=== PATIENT | male | born 1940 | race Caucasian/White ===

== ENCOUNTER 2021-02-16 14:48 | Outpatient (CLI) | payer OTHER, SELFPAY ==
--- NOTE | 2021-02-16 15:00 | USCV_ITS ---
Jimenez Leach Age: 80 Gender: M : 1940 Exam Date: 02/16/2021 15:08 Ordering Phys: Yoana Man MD ([email or web address]) Technologist: Molly Agosto Exam Location: [facility] [place] Indication: DIZZINESS BP: 130 / 84 HR: 89 Rhythm: Sinus Technical Quality: Adequate MEASUREMENTS (Male / Female) Normal Values 2D ECHO LV Diastolic Diameter PLAX 5.6 cm 4.2 - 5.9 / 3.9 - 5.3 cm LV Systolic Diameter PLAX 4.8 cm IVS Diastolic Thickness 1.7 cm 0.6 - 1.0 / 0.6 - 0.9 cm IVS Systolic Thickness 2.1 cm LVPW Diastolic Thickness 1.7 cm 0.6 - 1.0 / 0.6 - 0.9 cm LVPW Systolic Thickness 1.9 cm LVOT Diameter 2.0 cm LV Ejection Fraction 2D Teich 32.6 % LV Ejection Fraction MOD 2C 41.8 % LV Ejection Fraction 2C AL 41.6 % LA Diameter 4.0 cm LA Width 3.5 cm LA Height 4.5 cm RA Width 3.0 cm RA Height 3.7 cm Aorta at Sinotubular Diameter 3.1 cm DOPPLER AV Peak Velocity 73.0 cm/s LVOT Peak Velocity 67.0 cm/s AV Area Cont Eq vti 3.6 cm squared AV Area Cont Eq pk 2.9 cm squared MV Area PHT 4.9 cm squared MV E' Velocity 46.0 cm/s Mitral E to MV E' Ratio 10.7 Mitral E to LV E' Lateral Ratio 10.1 Mitral E to LV E' Septal Ratio 11.4 TR Peak Velocity 190.6 cm/s TR Peak Gradient 14.5 mmHg TR Mean Velocity 162.8 cm/s TR Mean Gradient 11.0 mmHg TR Velocity Time Integral 42.1 cm TV Peak E Velocity 52.0 cm/s FINDINGS Left Ventricle Normal left ventricular cavity size and systolic function. Left ventricular ejection fraction is estimated at 60 %. No diagnostic regional wall motion abnormalities. Rhythm precludes evaluation of diastolic function. Right Ventricle Dilated right ventricle with mildly decreased right ventricular systolic function. RVSP could not be calculated due to incomplete tricuspid regurgitation velocity profile. Right Atrium Normal right atrial size. Left Atrium Mildly increased left atrial size. Mitral Valve Moderate mitral annular calcification. Thickened mitral valve. No mitral valve stenosis. Trace mitral valve regurgitation. Aortic Valve Aortic valve not well visualized. No aortic valve stenosis. No aortic valve regurgitation. Tricuspid Valve Tricuspid valve not well visualized. Trace to mild tricuspid valve regurgitation. Pulmonic Valve Pulmonic valve not well visualized. Pericardium No pericardial effusion. Aorta Aorta not well visualized. CONCLUSIONS 1. This is a technically difficult study. Optison was used per protocol. 2. Normal left ventricular cavity size and systolic function. Left ventricular ejection fraction is estimated at 60 %. No diagnostic regional wall motion abnormalities. 3. No gross regional wall motion abnormality. 4. Dilated right ventricle with mildly decreased right ventricular systolic function. 5. When compared to previous echocardiogram dated 04/24/2018, right ventricular systolic function may have decreased. Yoana Man MD (Electronically Signed) Final Date: 17 February 2021 19:37 S
[2021-02-16] MEDS: perflutren protein-a microsphr 0.22 mg/mL SDV 3 mL IV (16:00)
== END 2021-02-16 14:49 | disposition home or self-care (01) ==
LOC: US 14:50
PROVIDERS: PCP Family Medicine; Visit Provider Internal Medicine Cardiovascular Disease
DX: R42 Dizziness and giddiness (principal); I25.10 Atherosclerotic heart disease of native coronary artery without angina pectoris; I50.9 Heart failure, unspecified
CPT/HCPCS: C8929

== ENCOUNTER 2021-09-15 12:09 | Emergency (ER) | payer OTHER, MEDICARE, SELFPAY ==
[2021-09-15 12:18] VITALS: BP 116/72; PULSE 90; RESP 20; TEMP 36.5; O2SAT 99; BMI 39.3
--- NOTE | 2021-09-15 12:38 | W.ED.BACK ---
HPI - Back Pain/Injury General: Chief Complaint: Back Pain/Injury Stated Complaint: back pain Time Seen by Provider: 09/15/21 12:32 Source: patient Mode of arrival: ambulatory (with walker) Limitations: no limitations History of Present Illness: 80-year-old male with a history of chronic low back pain, diabetes, hypertension, hyperlipidemia and is a [facility], presents to the ER today for low back pain that is worsened over the last week. Patient reports he has a history of chronic low back pain for which she took injection several years ago. Patient reports he saw the DC for this and had the injections done about 2 to 3 years ago. Patient reports he got better and was not having issues until about 2 weeks ago. He is unsure what he did to cause the pain to worsen however he became more sore about 2 weeks ago and then last week patient bent over to put a sock on and since that time has been hardly unable to move without assistance. Patient reports constant pain in the low back. He denies any radiating pain. Denies any loss of bowel or bladder control. Denies any numbness or tingling in the lower extremities. Patient has not take anything other than [id number] meds for his pain. Review of Systems General: Reports: 10 or more systems reviewed and unremarkable except in HPI and below PFSH ED PFSH: Medical History Atrial fibrillation CAD (coronary artery disease) CHF (congestive heart failure) Diabetes Hyperlipidemia Peripheral neuropathy Tobacco chew use Social History Alcohol intake: never Physical Exam Const: COMMON NORMALS: no acute distress, average body habitus, patient oriented x3, no limitations, healthy appearing and alert Neck/C-Spine: COMMON NORMALS: full ROM and no lymphadenopathy Resp: COMMON NORMALS: normal respiratory effort and clear to auscultation bilaterally AUSCULTATION: clear to auscultation bilaterally, no rales, no rhonchi and no wheezes Cardio: COMMON NORMALS: regular rate and regular rhythm RATE: regular rate RHYTHM: regular rhythm Back/Pelvis: LUMBAR SPINE/LOWER BACK: Yes normal to inspection, Yes ROM limited, Yes pain with ROM, Yes paraspinal muscle tenderness Lumbar paraspinal muscle tenderness: bilateral and Yes bend over test abnormal (significant pain illicited) Extremity: COMMON NORMALS: normal to inspection, full ROM and no pedal edema Neuro: COMMON NORMALS: patient oriented x3 SENSORIUM/ORIENTATION: Yes alert Psych: COMMON NORMALS: mental status grossly normal, Normal thought process present, cooperative and normal affect THOUGHT PROCESS: Normal thought process present Skin: COMMON NORMALS: no rashes or lesions noted GENERAL SKIN EXAM: no rashes or lesions noted Course ED course: 80-year-old male presents to the ER today with an acute exacerbation of low back pain. Patient denies any neurological symptoms at this time. Denies any loss of bowel or bladder control. Denies any numbness or tingling. Patient does not know what he did to cause the pain to worsen. Patient was taking injections in the past and those did seem to help however this is worsened over the last 2 weeks. Patient has not take anything at home for the pain. It is unlikely an x-ray which shows anything at this time. Patient likely needs more advanced imaging which he can follow-up with his PCP to do. Vital Signs: Vital signs: Vital Signs Temperature 97.7 F 09/15/21 12:18 Pulse Rate 82 09/15/21 12:39 Respiratory Rate 16 09/15/21 12:39 Blood Pressure 109/73 09/15/21 12:39 Pulse Oximetry 97 09/15/21 12:39 MDM - Back Pain/Injury Medical Decision Making 80-year-old male presents to the ER today with an acute exacerbation of low back pain. Patient denies any neurological symptoms at this time. Denies any loss of bowel or bladder control. Denies any numbness or tingling. Patient does not know what he did to cause the pain to worsen. Patient was taking injections in the past and those did seem to help however this is worsened over the last 2 weeks. Patient has not take anything at home for the pain. It is unlikely an x-ray which shows anything at this time. Patient likely needs more advanced imaging which he can follow-up with his PCP to do. I discussed this with patient who verbalized understanding. He will [facility] the [facility] in 10 to 14 days if no improvement. We will try a Medrol Dosepak, anti-inflammatory, and muscle relaxer. If this is not better in 10 to 14 days follow-up. Return to the ER with any new or worsening symptoms. Patient verbalized understanding and is in agreement with the treatment plan. Critical Care Time Critical Care Time: Critical Care Time: No Discharge Plan Discharge Patient Disposition: Home Clinical Impression: Acute exacerbation of chronic low back pain Condition: Stable Prescriptions: New ketorolac 10 mg tablet 10 mg PO Q8H PRN (Reason: pain) 3 Days Qty: 12 0RF methocarbamol 750 mg tablet 750 mg PO Q8H Qty: 21 0RF Medrol (Sina) 4 mg tablets,dose pack See Rx Instructions .ROUTE .COMPLEX Qty: 21 0RF Rx Instructions: orally per package directions No Action aspirin [Adult Low Dose Aspirin] 81 mg tablet,delayed release (DR/EC) 81 mg PO DAILY 0RF cholecalciferol (vitamin D3) 2,000 unit tablet 2,000 unit PO DAILY 0RF fenofibrate nanocrystallized 48 mg tablet 48 mg PO DAILY 0RF omega-3 fatty acids PO 0RF folic acid 1 mg tablet 1 mg PO DAILY 0RF gabapentin 400 mg capsule 400 mg PO BID 0RF glipizide 5 mg tablet 5 mg PO BID 0RF metformin 1,000 mg tablet 500 mg PO BID 0RF omeprazole 20 mg capsule,delayed release(DR/EC) 20 mg PO DAILY 0RF potassium chloride 20 mEq packet 20 meq PO DAILY 0RF rivaroxaban 20 mg tablet 20 mg PO DAILY 0RF rosuvastatin 10 mg tablet 10 mg PO DAILY 0RF terazosin 10 mg capsule 10 mg PO DAILY 0RF furosemide 20 mg tablet 20 mg PO DAILY 0RF Label Comments: Per pt takes 2 10 mg daily atenolol 25 mg tablet 25 mg PO DAILY Qty: 90 1RF lisinopril 5 mg tablet 5 mg PO DAILY Qty: 90 1RF Discharge Orders: Discharge ED (Routine); Ordered 09/15/21 Ordered By: Roxanne Alvarez Referrals: Rose Milton MD [Primary Care Provider] - Discharge Diet: Usual diet Discharge Activity: Increase activity as tolerated Patient Instructions: Opioid Safety Activity Restrictions/Additional Instructions: Take medications as prescribed. [facility] with [facility] doctor in 10 to 14 days if no improvement. Warm moist heat alternating with ice recommended for the low back. Topical muscle rub may also be used but do not use with heat or ice. Return to the ER with new or worsening symptoms. Coding Level of Care Code ED Land Surveying Party Chief for Trixie Melgar
[2021-09-15 12:39] VITALS: BP 109/73; PULSE 82; RESP 16; O2SAT 97
[2021-09-15 13:11] VITALS: BP 109/73; PULSE 87; RESP 16; O2SAT 98
== END 2021-09-15 13:12 | disposition home or self-care (01) ==
PROVIDERS: Emergency Provider Physician Assistant; PCP Family Medicine
DX: M54.50 Low back pain, unspecified (principal); G89.29 Other chronic pain
CPT/HCPCS: 99281

== ENCOUNTER → 2021-10-20 10:41 | Outpatient (BNVA) | payer OTHER, SELFPAY | PROVIDERS: PCP Family Medicine; Visit Provider Internal Medicine Cardiovascular Disease | DX: I25.10 Atherosclerotic heart disease of native coronary artery without angina pectoris (principal); I11.0 Hypertensive heart disease with heart failure; I50.9 Heart failure, unspecified; E78.5 Hyperlipidemia, unspecified; I48.11 Longstanding persistent atrial fibrillation; E11.42 Type 2 diabetes mellitus with diabetic polyneuropathy; Z87.891 Personal history of nicotine dependence; Z79.84 Long term (current) use of oral hypoglycemic drugs | CPT/HCPCS: 99214 ==

== ENCOUNTER → 2022-03-22 09:05 | Outpatient (BNVA) | payer OTHER, SELFPAY | PROVIDERS: PCP Family Medicine; Referring Provider Family Medicine; Visit Provider Orthopaedic Surgery | DX: M48.062 Spinal stenosis, lumbar region with neurogenic claudication (principal) | CPT/HCPCS: 72110; 99203; 99204 ==

== ENCOUNTER 2022-05-17 10:06 | Outpatient (CLI) | payer OTHER, SELFPAY ==
--- NOTE | 2022-05-17 10:15 | MR_ITS ---
WS: [id number] MRI LUMBAR SPINE NONCONTRAST TECHNIQUE: Sagittal T1, T2 and STIR imaging. Axial T1 and T2 imaging. CLINICAL INFORMATION: low back pain COMPARISON: None. FINDINGS: Mild lumbar curve. Moderate spondylitic changes. Anterior hypertrophic changes lumbar spine. Disc bul ging worse at L4-L5 with severe central canal stenosis. L1-L2: Mild annular bulging. Moderate facet arthropathy. Mild LEFT and no RIGHT foraminal narrowing. Mild central canal stenosis at this level. L2-L3: Mild disc bulging and osteophytic ridging. Moderate central canal stenosis. Moderate facet art hropathy ligamentum flavum hypertrophy. Mild RIGHT and no LEFT foraminal narrowing. L3-L4: Mild disc bulging and osteophytic ridging. Moderate central canal stenosis. Advanced arthropat hy. Mild RIGHT and no significant LEFT foraminal narrowing. L4-L5: Severe central canal stenosis with mild disc bulging in combination with facet arthropathy and ligamentum flavum hypertrophy. Impingement on traversing LEFT greater than RIGHT L5 nerve roots. Mod erate to severe LEFT and mild RIGHT foraminal narrowing. Advanced facet arthropathy. L5-S1: Disc osteophyte complex with endplate ridging. Moderate to advanced facet arthropathy. Severe RIGHT foraminal narrowing. Impingement on the exiting RIGHT L5 nerve root. Mild to moderate LEFT bony foraminal narrowing. Visualized pelvic bony structures: Normal. Paravertebral soft tissues: Normal. MR/MR lumbar spine wo con* [id number] IMPRESSION: 1. Severe central canal stenosis L4-L5 due to disc bulging with facet arthropa thy ligamentum flavum hypertrophy. Impingement on the traversing LEFT greater t sky RIGHT L5 nerve roots. 2. Mild central canal stenosis L1-L2. Moderate central canal stenosis L2-L3 L3 -L4 due to disc bulging in combination with facet arthropathy ligamentum flavum hypertrophy. 3. Moderate LEFT L4-L5 and moderate to severe RIGHT L5-S1 foraminal narrowing. Impingement on the exiting LEFT L4 and RIGHT L5 nerve roots respectively. 4. Mild RIGHT L3-L4 foraminal narrowing with small RIGHT foraminal protrusion.
== END 2022-05-17 10:07 | disposition home or self-care (01) ==
LOC: RAD 10:07
PROVIDERS: PCP Family Medicine; Visit Provider Orthopaedic Surgery
DX: M54.50 Low back pain, unspecified (principal)
CPT/HCPCS: 72148

== ENCOUNTER → 2022-06-14 10:02 | Outpatient (BNVA) | payer OTHER, SELFPAY | PROVIDERS: PCP Family Medicine; Visit Provider Physician Assistant | DX: M48.062 Spinal stenosis, lumbar region with neurogenic claudication (principal); M51.37 Other intervertebral disc degeneration, lumbosacral region; M48.07 Spinal stenosis, lumbosacral region | CPT/HCPCS: 99213 ==

== ENCOUNTER → 2022-07-03 10:47 | Outpatient (BNVA) | payer OTHER, SELFPAY | PROVIDERS: PCP Family Medicine; Visit Provider Internal Medicine Cardiovascular Disease | DX: Z01.810 Encounter for preprocedural cardiovascular examination (principal); I25.10 Atherosclerotic heart disease of native coronary artery without angina pectoris; I48.11 Longstanding persistent atrial fibrillation; E78.5 Hyperlipidemia, unspecified; F17.220 Nicotine dependence, chewing tobacco, uncomplicated; I11.0 Hypertensive heart disease with heart failure; I50.30 Unspecified diastolic (congestive) heart failure | CPT/HCPCS: 93005; 99214; Q3014 ==

== ENCOUNTER 2022-08-06 10:02 | Outpatient (CLI) | payer OTHER, SELFPAY | END 2022-08-06 10:03 | disposition home or self-care (01) | LOC: RT 10:03 | PROVIDERS: PCP Family Medicine; Visit Provider Orthopaedic Surgery | DX: Z01.810 Encounter for preprocedural cardiovascular examination (principal) | CPT/HCPCS: 93005 ==

== ENCOUNTER 2022-08-09 09:37 | Outpatient (CLI) | payer OTHER, SELFPAY ==
--- NOTE | 2022-08-09 | ECG_ITS ---
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 Interpretive Statements NAME OF STUDY: LEXISCAN SESTAMIBI STRESS TEST INDICATION: Chest Pain PROCEDURE: At the baseline, the EKG revealed atrial fibrillation with a ventricular rate of [address]-T changes pm. The baseline heart was 90 bpm with a blood pressue of 119/78 mm of Hg Lexiscan was infused over a period of 20 seconds. A total of 0.4 milligrams of Lexiscan was infused. The stress phase was continued for a total of 5 minutes. Heart rate at the end of the stress phase was 104 bpm with a blood pressure 93/72 mm of Hg. The EKG at the peak infusion revealed no significant changes occasional PVCs are noted during the stress. Sestamibi was injected 20 seconds after the Lexiscan infusion. Heart rate at the end of the recovery phase was 97 bpm with a blood pressure of 112/80 mm of Hg. CONCLUSION: 1. No significant EKG changes with the LexiScan infusion 2. No LexiScan induced chest pain or cardiac arrhythmia 3. Normal blood pressure and heart rate response 4. Sestamibi/sestamibi perfusion scan pending; see separate report. Electronically Signed On 08-11-2022 16:43:45 RESIDENT CARE AIDE by Delbert uQintero M.D. [id number]
[2022-08-09 10:27] VITALS: BMI 38.0
--- NOTE | 2022-08-09 11:18 | NMCV_ITS ---
NM jm perf SPECT r/s* [id number] RosalindaJmienez barroso Age: 81 Gender: M : 1940 Exam Date: 08/09/2022 11:15 Ordering Phys: Yoana Man MD ([email or web address]) Technologist: TYESHA George Exam Location: [facility] Indications: AFIB STRESS TEST Please see separate stress test report in [facility] for full findings IMAGE PROTOCOL Rest/Stress 1 Lexiscan Day Radiopharmaceutical Dose (mCi) Administration Site Administered by Rest: Tc-99m 10.7 IV TYESHA Meraz Sestamibi Stress:Tc-99m 33.0 IV TYESHA Meraz Sestamibi Rest: 09-Aug-2022 60 Discovery 630 Stress: 09-Aug-2022 30 Discovery 630 0.4mg Lexiscan. Supine position only as patient was unable to lay prone. SPECT RESULTS Technical Quality: Excellent Raw Data Analysis: Normal Image Corrections: No attenuation or motion correction applied Summed Stress Score: 0 Summed Rest Score: 0 Summed Difference Score: 0 PERFUSION FINDINGS Uniform myocardial tracer uptake with no significant perfusion abnormalities FUNCTIONAL RESULTS (calculated via Gated SPECT) Stress Image LV EF (%): 59 Stress EDV (mL):85 TID: 1.06 Stress ESV (mL):35 FUNCTIONAL FINDINGS: Segmental wall motion analysis revealing no gross wall motion abnormalities IMPRESSIONS 1. Myocardial perfusion imaging revealing fairly uniform myocardial tracer uptake with no significant perfusion abnormalities. 2. Normal LV ejection fraction of 59% 3. LV wall motion analysis revealing no gross wall motion abnormalities. 4. Normal LV volume Low probability for coronary ischemia, based on the above findings Dr Delbert Quintero MD FACC (Electronically Signed) Final Date: 09 August 2022 13:07 S
[2022-08-09] MEDS: regadenoson 0.4 Mg/5 ml Syringe IVP (11:46)
[2022-08-09 13:58] VITALS: BP 126/75; PULSE 62
== END 2022-08-09 09:38 | disposition home or self-care (01) ==
LOC: CDL 09:39
PROVIDERS: PCP Family Medicine; Visit Provider Internal Medicine Cardiovascular Disease
DX: R07.9 Chest pain, unspecified (principal)
CPT/HCPCS: 36415; 78452; 93017; 96374; A9500; J2785

== ENCOUNTER 2022-08-13 12:10 | Inpatient (IN) | payer OTHER, SELFPAY ==
[2022-08-06 09:14] VITALS: BMI 38.0
--- NOTE | 2022-08-06 09:21 | ECG_ITS ---
[facility] Test Date: 2022-08-06 Pat Name: Jimenez Leach Department: Room: Gender: Male Incident Response Analyst: : 1940 Requested By: Drew Michaud Order Number: [id number] Antoino MD: Chidi Murillo M.D. Measurements Intervals [place] Rate: 80 P: 0 [place]: 0 QRS: 48 QRSD: 90 T: 30 QT: 374 QTc: 432 Interpretive Statements ATRIAL FIBRILLATION WITH ABERRANT CONDUCTION OR VENTRICULAR PREMATURE COMPLEXES Compared to ECG 10/03/2018 11:41:18 Ventricular premature complex(es) now present Aberrant conduction of supraventricular beat(s) now present Sinus bradycardia no longer present Myocardial infarct finding no longer present Electronically Signed On 08-06-2022 17:32:50 MARKETING TEAM LEAD by Chidi Murillo M.D. [id number]
[2022-08-06 09:45] LABS: Hematocrit 44.6 % (42.0-52.0); Hemoglobin 14.4 g/dL (11.7-16.6); Mean Corpuscular HGB Conc 32.3 g/dL (30.0-36.0); Mean Corpuscular Hemoglobin 30.4 pg (28.0-34.0); Mean Corpuscular Volume 94.3 fl (80-94); Mean Platelet Volume 10.2 fL (7.4-10.4); Platelet Count 155 10^3/cmm (130-400); Red Blood Count 4.73 10^6/uL (4.1-5.3); Red Cell Distribution Width 16.5 % (12.1-15.1)
[2022-08-06 10:01] LABS: Absolute Eosinophils 0.1 10^3/cmm (0.0-0.7); Absolute Segmented Neutrophil 3.4 10/cmm (1.6-7.1); Anion Gap 15.4 (5-19); Blood Urea Nitrogen 17 mg/dL (8-23); Calcium 9.3 mg/dL (8.5-10.5); Carbon Dioxide 26 mmol/L (22-29); Chloride 103 mmol/L (98-107); Eosinophils 3 %; Glucose 122 mg/dL (65-115); Lymphocytes 34 %; Monocytes Absolute 0.4 10^3/cmm (0.1-0.6); Osmolality Calculated 293 mOsm/kg (285-295); Potassium 4.4 mmol/L (3.5-5.1); Segmented Neutrophils 57 %; Sodium 140 mmol/L (136-145); Total Cells Counted 100 (0-100)
[2022-08-06 10:03] LABS: Absolute Neutrophil 3.4 10^3/cmm (1.4-6.5); Platelet Estimate Normal (Normal)
--- NOTE | 2022-08-06 16:15 | ANES.PREANE2 ---
Pre-Anesthetic Assessment Height/Weight: Height 1.83 m Weight 127.006 kg Operation Date: 08/13/22 07:00 Proposed Procedures p Posterior Lumbar Interbody Fusion [id number] with decomp of L4/5 L5S1 and possible PLIF L5/S1 T10 60693 T11 68308 T12 14522 L1 83614,[id number] 40658, 43857,47867,67414,59723,06203,86680,48080,M48.062,M51.37(Not Applicable) - Jermaien Wing DO s Lumbar Spine Decompression 10257,09754(Not Applicable) - Jermaine Wing DO Familial anesthetic complications: none Was Beta Aretha taken within 24 hours: Yes Was Clonidine taken within 24 hours: N/A Social Tobacco (chews) and No alcohol Exam alert, oriented x 3 and clear to auscultation bilaterally Airway Submandibular: within normal limits Cervical ROM: within normal limits Mallampati: Class II Dentition: false Pulmonary Chronic Obstructive Pulmonary Disease CV/HEM Atrial Fibrillation (Xarelto), Coronary Artery Disease (stent) and Hypertension Stress test scheduled for 08/09/22 (f/u) Metabolic Diabetes Mellitus, Hyperlipidemia and Morbid Obesity [facility] Lower Back Pain and Osteoarthritis/DJD Neuropsych Neuropathy Anesthetic Plan ASA status: 3 Anesthesia: General Other: Discussed a.line and transfusion Medications/Allergies Home Medications Medication Instructions Recorded Confirmed Last Taken Type aspirin 81 mg tablet,delayed 81 mg PO DAILY 07/30/19 08/06/22 08/06/22 History release (Adult Low Dose Aspirin) fenofibrate nanocrystallized 48 mg 48 mg PO DAILY 07/30/19 08/06/22 08/06/22 History tablet folic acid 1 mg tablet 1 mg PO DAILY 07/30/19 08/06/22 08/06/22 History gabapentin 400 mg capsule 400 mg PO BID 07/30/19 08/06/22 08/06/22 History metformin 1,000 mg tablet 500 mg PO BID 07/30/19 08/06/22 08/06/22 History omeprazole 20 mg capsule,delayed 20 mg PO DAILY 07/30/19 08/06/22 08/06/22 History release rivaroxaban 20 mg tablet 20 mg PO DAILY 07/30/19 08/06/22 08/06/22 History rosuvastatin 10 mg tablet 10 mg PO DAILY 07/30/19 08/06/22 08/06/22 History terazosin 10 mg capsule 10 mg PO DAILY 07/30/19 08/06/22 08/06/22 History atenolol 25 mg tablet 25 mg PO DAILY #90 tabs 04/24/21 08/06/22 08/06/22 Rx lisinopril 5 mg tablet 5 mg PO DAILY #90 tabs 04/24/21 08/06/22 08/06/22 Rx glipizide 5 mg tablet 5 mg PO DAILY 10/20/21 08/06/22 08/06/22 History furosemide 20 mg tablet 60 mg PO DIRECTED 07/03/22 08/06/22 08/06/22 History omega-3 fatty acids [Fish Oil 1,000 mg PO DAILY 07/03/22 08/06/22 08/06/22 History Concentrate] potassium chloride 20 mEq 30 meq PO DAILY 07/03/22 08/06/22 08/06/22 History tablet,extended release prenat.vits,gene,cff-ongg-dhodc 1 tab PO DAILY 07/03/22 08/06/22 08/06/22 History alogliptin 25 mg tablet 25 mg PO DAILY 08/06/22 08/06/22 08/06/22 History Allergies Allergy/AdvReac Type Severity Reaction Status Date / Time No Known Allergies Allergy Verified 08/06/22 09:04 [facility] Anesthesia Medical History Atrial fibrillation CAD (coronary artery disease) CHF (congestive heart failure) Diabetes Hyperlipidemia Peripheral neuropathy Tobacco chew use Social History Smoking and tobacco status: former smoker Alcohol intake: never Data Anesthesia 08/06/22 09:20 08/06/22 09:20 Short CBC 08/06/22 Range/Units 09:20 WBC 6.0 (4.0-10.0) 10^3/uL Hgb 14.4 (11.7-16.6) g/dL Hct 44.6 (42.0-52.0) % MCV 94.3 H (80-94) fl Plt Count 155 (130-400) 10^3/cmm BMP 08/06/22 09:20 Sodium 140 Potassium 4.4 Chloride 103 Carbon Dioxide 26 BUN 17 Creatinine 1.0 Glucose 122 H Calcium 9.3 Cardiac Studies: Echocardiogram 02/16/21 Holter Monitor 12/23/20
[2022-08-13] VITALS (75 sets, daily range): BP systolic 73–141; BP diastolic 37–87; PULSE 33–96; RESP 0–31; TEMP 36.1–37.4; O2SAT 91–99
--- NOTE | 2022-08-13 06:14 | PM.HP ---
Providers/Chief Complaint Primary Care Provider: Rose Milton MD Chief Complaint: [id number]/M48.062/M51. History of Present Illness Jimenez Leach is a 81 year old male ?He ambulates with a roller walker.? States he has had progressive numbness in his feet he can only walk a short distance for sit down because of the symptoms progressing.? He reports 80% back pain 20% leg pain.? Activities such as leaning forward on a cart definitely help relieve some of his leg symptoms but it in the last 6 months he cannot feel his feet.? He denies any loss of bowel or bladder control.? He has had an conservative treatment in the past with injections in the past without much relief.? He is at a point where he is wanting something more definitive done to help him return to more active lifestyle. Review of Systems Const: Denies: fever(s) or chills Eyes: Denies: change in vision Card: Reports: dyspnea on exertion; Denies: chest pain, palpitations, swelling of feet/ankles, lightheadedness or orthopnea Resp: Denies: dyspnea, productive cough or non-productive cough GI: Denies: abdominal pain, nausea or vomiting Musc: Reports: neck pain, back pain and joint pain Neuro: Denies: headache(s) or dizziness Psych: Reports: anxiety; Denies: depression Dong/Lymph: Reports: easy bruising; Denies: easy bleeding Medications/Allergies Home Medications Medication Instructions Recorded Confirmed Last Taken Type aspirin 81 mg tablet,delayed 81 mg PO DAILY 07/30/19 08/06/22 08/12/22 History release (Adult Low Dose Aspirin) fenofibrate nanocrystallized 48 mg 48 mg PO DAILY 07/30/19 08/06/22 08/12/22 History tablet folic acid 1 mg tablet 1 mg PO DAILY 07/30/19 08/06/22 08/12/22 History gabapentin 400 mg capsule 400 mg PO BID 07/30/19 08/06/22 08/12/22 History metformin 1,000 mg tablet 500 mg PO BID 07/30/19 08/06/22 08/12/22 History omeprazole 20 mg capsule,delayed 20 mg PO DAILY 07/30/19 08/06/22 08/12/22 History release rivaroxaban 20 mg tablet 20 mg PO DAILY 07/30/19 08/06/22 08/08/22 History rosuvastatin 10 mg tablet 10 mg PO DAILY 07/30/19 08/06/22 08/12/22 History terazosin 10 mg capsule 10 mg PO DAILY 07/30/19 08/06/22 08/12/22 History atenolol 25 mg tablet 25 mg PO DAILY #90 tabs 04/24/21 08/06/22 08/13/22 05:00 Rx lisinopril 5 mg tablet 5 mg PO DAILY #90 tabs 04/24/21 08/06/22 08/12/22 Rx glipizide 5 mg tablet 5 mg PO DAILY 10/20/21 08/06/22 08/12/22 History furosemide 20 mg tablet 60 mg PO DIRECTED 07/03/22 08/06/22 08/12/22 History omega-3 fatty acids [Fish Oil 1,000 mg PO DAILY 07/03/22 08/06/22 08/12/22 History Concentrate] potassium chloride 20 mEq 30 meq PO DAILY 07/03/22 08/06/22 08/12/22 History tablet,extended release prenat.vits,gene,[id number]-[id number]-wmntn 1 tab PO DAILY 07/03/22 08/06/22 08/12/22 History alogliptin 25 mg tablet 25 mg PO DAILY 08/06/22 08/06/22 08/06/22 History Allergies Allergy/AdvReac Type Severity Reaction Status Date / Time No Known Allergies Allergy Verified 08/09/22 10:48 PFSH Acute PFSH: Medical History Atrial fibrillation CAD (coronary artery disease) CHF (congestive heart failure) Diabetes Hyperlipidemia Peripheral neuropathy Tobacco chew use Social History Smoking and tobacco status: former smoker Alcohol intake: never Physical Exam Narrative: Narrative:?? EXAM NARRATIVE: He is alert orient x 3 has good general appearance normal mood and affect a mbulating with a r bethany walker with an antalgic gait.? He is tender with palpation through out the lumbar spi ne over the parasp inous musculature of the lumbar spin e.? He has decreas ed sensation light touch diffusely d own both lower ext remities.? He is v fatoumata stiff with hip flexion.? He can dorsiflex and plan tarflex both lower extremities with some weakness bila terally.? Skin is clear warm femoral good cap refill c aj are supple d orsalis pedis post erior pulses are w eak but palpable.? No medial thigh t enderness. HENMT:?? COMMON NORMALS: no rmocephalic? HEAD & SCALP: normoceph alic Resp:?? COMMON NORMALS: no rmal respiratory e ffort Cardio:?? COMMON NORMALS: re gular rate and reg ular rhythm? RATE: regular rate? RHY THM: regular rhyth m GI:?? COMMON NORMALS: So ft to palpation an d non-tender? PALP ATION: Yes Soft to palpation :?? COMMON NORMALS: Ye s no CVA tendernes s? BLADDER/KIDNEY EXAM: Yes no CVA t enderness Back/Pelvis:?? COMMON NORMALS: no CVA tenderness Psych:?? COMMON NORMALS: me ntal status grossl y normal and coope rative Data 08/06/22 09:20 08/06/22 09:20 A&P Assessment and plan (1) Lumbar stenosis with neurogenic claudication: T10 to the pelvis fusion with decompression L4-5 L5-S1 with possible PLIF L5-S1 with the use of? K2 M Nicholson TL cage with Bioventus osteoamp fibers and osteo amp sponges for the cage and posterior lateral fusion.? Attestations Medical Necessity Statement*: failed conservative tx Coding Level of Care Code Acute Code for [facility] Fwd Diagnoses Lumbar stenosis with neurogenic claudication M48.062
[2022-08-13 06:17] LABS: Glucose Point of Care 135 mg/dL (70-110)
[2022-08-13] MEDS: sodium chloride 0.9% 1,000 ML 30 ML IV (06:25)
--- NOTE | 2022-08-13 06:40 | P.ANESUD_ITS ---
Pre-Anesthetic Update Pre-Anesthetic Assessment: Date of Surgery/Procedure: 08/13/22 Preop Bhavna gnosis: DDD l spine, lumbar stenosis with neurogenic claudication Proposed Procedure: Operation Date: 08/13/22 07:00 Proposed Procedures p Posterior Lumbar Interbody Fusion [id number] with decomp of L4/5 L5S1 and possible PLIF L5/S1 T10 68895 T11 95437 T12 38593 L1 [id number], [id number],M48.062,M51.37(Not Applicable) - Jermaine Wing, DO s Lumbar Spine Decompression [id number](Not Applicable) - Jermaine Wing, DO Any changes to Pre-Anesthetic Assessment?: No Last Intake: Intake Last Liquid Date 08/12/22 Last Liquid Time 22:00 Last Solid Date 08/12/22 Last Solid Time 22:00 Vitals: Temperature 97.0 F L 08/13/22 06:17 Temperature Source Tympanic 08/13/22 06:17 Pulse Rate 79 08/13/22 06:17 Respiratory Rate 20 H 08/13/22 06:17 Blood Pressure 141/70 08/13/22 06:17 Blood Pressure Fannie n 93 08/13/22 06:17 Pulse Oximetry 94 08/13/22 06:17 Oxygen Delivery Me thod 08/13/22 06:17 Exam: Pre-Anes Outpt Exam: alert, oriented x 3, clear to auscultation bilaterally and regular rate & rhythm Cardiac Studies: Echocardiogram 02/16/21 Sestamibi Stress Test (Cardiology) 08/09 Holter Monitor 12/23/20
[2022-08-13] MEDS: ceFAZolin 2,000 MG in sodium chloride 0.9% (plus) 50 ML 100 MG IV ×3 (07:03→22:36)
[2022-08-13] MEDS: vancomycin 1,000 MG SDV 1000 MG XX (07:57)
[2022-08-13] MEDS: lidocaine-epi 1% 20 mL INJ INJECTION (07:58)
[2022-08-13] MEDS: heparin, porcine 1,000 unit/mL INJ 10 mL 10000 UNIT IRRIGATION (07:58)
--- NOTE | 2022-08-13 08:04 | SUR.OPER ---
daughter notified of surgical start.
--- NOTE | 2022-08-13 11:52 | PM.OP ---
Operative Report Date of procedure: August 13, 2022 Pre-op diagnosis: Preop Diagnosis DDD l spine, lumbar stenosis with neurogenic claudication Post-op diagnosis: same Procedure done: 1. T10 to pelvis posterior fusion 2. T10 to S1 instrumentation 3. Lumbopelvic instrumentation 4. Right SI open fusion 5. Left open SI joint fusion 6. L3/4 laminecomy with partial facetectomy 7. L4/5 laminectomy with partial facetectomy 8. Use of computer navigation / stereotactic for spine 9. Bone marrow aspirate right iliac crest 10. use of autograft 11. use of allograft Surgeon: Jemraine Wing Manometer Technician: Rivera Xie Manometer Technician: The sales support assistant, Rivera Xie, PAC was needed for his expertise under the microscope. He was important and necessary throughout the procedure to complete in a safe and timely manner. He assisted with patient positioning prepping and draping tissue retraction suctioning of the operative field protection of the dural sac and tissue closure Estimated blood loss (mL): 600 Procedure: 1. T10 to pelvis posterior fusion 2. T10 to S1 instrumentation 3. Lumbopelvic instrumentation 4. Right SI open fusion 5. Left open SI joint fusion 6. L3/4 laminecomy with partial facetectomy 7. L4/5 laminectomy with partial facetectomy 8. Use of computer navigation / stereotactic for spine 9. Bone marrow aspirate right iliac crest 10. use of autograft 11. use of allograft Patient is brought to the operative suite.? After undergoing anesthesia, the patient had neuro monitoring attached.? Patient was then placed in the prone position on the Andrey table.? All areas of impingement were well-padded.? Patient was then prepped and draped in the normal sterile fashion.? Skin incision was then made over the T10 to sacrum.? Subperiosteal dissection was made out to the transverse processes of T10 thru L5 and the sacral ala.? The [employer] bone marrow aspirate kit was used to aspirate bone marrow aspirate from the right iliac crest.? This was done by using the sharp probe to open up the bone.? Aspiration was performed and then the blunt probe was then used to dissect down to through the bone tunnel.? An aspirating well drawn back a millimeter approximately 20 cc of bone marrow aspirate was used.? Admixed with the allograft and autograft bone that will be used. Next attention was brought to obtaining the placement of the computer navigation fiducial.? This was done by placing tube pins into the iliac crest.? These pins were later removed at the end of the case.? The fiducial was attached to these 2 pins.? The C-arm was brought in and the C-arm was spun around the patient.? The information from the C-arm was then loaded in the computer in order to facilitate using computer navigation for placement of pedicle screws and iliac screws. Next attention was brought to placing the pedicle screws. The technique for placing the pedicle screws was to use a drill followed by the gearshift probe linked to the computer navigation.? Followed by the ball probe to feel the superior inferior medial lateral saenz of the pedicles.? Then placement of the screws using computer navigation.? Was done at each pedicle.? Screws were placed atT10 bilaterally, T11 bilaterally, T12 bilaterally, L1 bilaterally and L2 bilaterally and L3 bilaterally and L4 bilaterally and L5 bilaterally and S1 bilaterally. Next attention was brought to placing the iliac screws.? This was done again using the gearshift probe linked to get computer navigation.? The iliac screw was started at the sacrum through the ala through the SI joint and into the pelvis.? Next the pedicle feeler was used followed by the tap that was linked to computer navigation and then an 80 mm screw 9.5 mm diameter was placed this was done bilaterally. Next attention was brought to performing the open sacroiliac fusion.? This was done by identifying the SI joint bilateraly.? A pin was placed into the SI joint.? And then a tissue protector was placed and then the SI joint was drilled directly.? Next the ostial amp bone graft was packed into the SI joint.? This was done on both the right and the left side. Was brought to doing the decompression at L4-5. The high-speed bur was used to take down the lamina as well as the medial aspect of the facet joints. A curved curette and Kerrison rongeur was used to take down the remaining lamina as well as the ligamentum flavum from L4 to L5. The medial aspect of the facet joints were taken down with curved curettes Kerrison rongeurs and high-speed drill. Once the laminectomy and partial facetectomies were clipped completed bilaterally the L5 nerve was traced around the L5 pedicle felt to be adequately decompressed as was the L4 nerve out the L4-5 foramen. Next attention was brought to the L3-4 space. The lamina of L3 was taken down with a high-speed bur along with curved curettes and Kerrison rongeurs. Medial aspect of facet joints were taken down with a curved curettes and Kerrison rongeurs. The ligamentum flavum was taken down from L3-L4 the dura was found to be in good repair from L3 down to L5. The L3 nerve roots were traced out the L3-4 foramens bilaterally. And the L for nerves were traced around the L4 pedicles bilaterally felt to be adequate decompressed. Extension was brought to placing the rods. The screw caps were aligned and the lizette was placed from T10 down to S1 connecting also into the iliac crest completing the lumbopelvic fixation. The caps were then tightened down on all of the screws from T10 down to the iliac crest. There is S1. This was done bilaterally. We was then irrigated. And then the bone was decorticated the transverse processes from L1 to the sacral ala. And then the lamina and transverse processes of the [id number] were decorticated. The patient's own bone and the allograft osteo amp bone graft was packed in these gutters and this was done for fusion purposes. He was then closed in a layered fashion with 0 Vicryl 2-0 Vicryl Monocryl suture. Deep drain was placed along vancomycin powder sterile dressings were applied patient was transferred to the PACU in stable condition.
[2022-08-13 12:21] LABS: Glucose Point of Care 136 mg/dL (70-110)
--- NOTE | 2022-08-13 13:04 | ANE.PACU2 ---
Inpatient post-anesthesia follow up: Airway intact: Yes Vital signs: Temperature 97.3 F Pulse Rate 89 Respiratory Rate 13 Blood Pressure 103/65 Pulse Oximetry 97 Oxygen Delivery Me thod Simple Mask Oxygen Flow Rate 3 Fraction of Inspir ed Oxygen Hydration adequate: Yes Nausea and vomiting: No Pain level: 3 Mental status: Baseline
[2022-08-13] MEDS: sodium chloride 0.9% 1,000 ML 100 ML IV (13:38)
[2022-08-13] MEDS: lactated ringers 1,000 ML 90 ML IV (15:11)
[2022-08-13 16:36] LABS: Glucose Point of Care 174 mg/dL (70-110)
[2022-08-13] MEDS: sodium chloride 0.9% 500 ML IV (16:50)
[2022-08-13] MEDS: docusate sodium 100 mg Capsule PO (17:43)
[2022-08-13] MEDS: gabapentin 400 mg Capsule PO (17:43)
[2022-08-13] MEDS: metformin 500 mg Tablet PO (17:43)
[2022-08-13 19:21] LABS: Hemoglobin 6.4 g/dL (11.7-16.6)
--- NOTE | 2022-08-13 19:26 | PC.NURSE ---
Patient resting in bed, AAOx4, minimal c/o pain and discomfort, copious amounts of sanginous fluid from drain please see charting. Physician notified of drainage amount, low bp, HH with orders received. Family has been at bedside, patient in asymptomatic. Patient is turning in bed, has an abdominal binder bedside and patient asking to hold off on brace at this time. Room is clean and clutter free with call light within reach. All questions and concerns addressed. Report handoff to oncoming nurse at bedside.
[2022-08-13] MEDS: sodium chloride 0.9% 500 ML 999 ML IV ×2 (19:48→20:48)
[2022-08-13 20:48] LABS: Glucose Point of Care 228 mg/dL (70-110)
--- NOTE | 2022-08-13 21:30 | PC.NURSE ---
Pt transferred to ICU12 after multiple 500mL NS boluses for post-surgical hypotension and blood transfusion started for Hgb of 6.4
--- NOTE | 2022-08-13 21:44 | P.CONIM_ITS ---
Providers/Reason For Consult Consulting Physician/Specialty*: Elyssa Sellers MD/ Hospitalist Reason for Consult*: Acute blood loss anemia Requesting Physician: Jermaine Wing Attending Physician: Jermaine Wing DO Primary Care Provider: Rose Milton MD History of Present Illness History of Present Illness Jimenez Leach is a 81 year old male PMHx of HTN, DM -2, dyslipidemia, tobacco abuser (chews tobacco, quit cigarettes in 1970), chronic atrial fibrillation,CHF, CAD s/p mid RCA NOEMÍ in Apr 2018 and morbid obesity. He was admitted yesterday for lumbar stenosis with neurogenic claudication and underwent T10-S1 posterior fusion and instrumentation. Medicine consult was obtained this evening when patient blood pressure dropped between 70-80 systolic. He had evidence of acute blood loss anemia with hemoglobin dropped from 14 at baseline to 6.4. 2 units of packed red blood cell transfusion has been ordered. Patient denies any current symptoms at this time. Denies any chest pain dizziness syncope. He has been laying in bed. Increased bleeding was noted in his drain by his bedside nurse. He received 500 cc normal saline bolus which has not improved his blood pressure and current currently still running at 75/49. Patient has been moved to the ICU. Review of Systems General: Reports: 10 or more systems reviewed and unremarkable except in HPI and below Const: Denies: fever(s), chills or body aches Eyes: Denies: change in vision, blurry vision or photophobia ENMT: Reports: hoarseness; Denies: throat pain, enlarged tonsils, odynophagia or nasal congestion Card: Denies: chest pain, palpitations, irregular heart rhythm, edema, swelling of feet/ankles, lightheadedness, pre-syncope, dyspnea on exertion or orthopnea Resp: Denies: dyspnea, productive cough, non-productive cough, wheezing, stridor, pain on inspiration, change in phlegm color, hemoptysis or chest conge stion GI: Denies: abdominal pain, nausea, vomiting, hematemesis, coffee ground emesis, dysphagia, heartburn, diarrhea, constipation, GI cramping, change in stool character, hematochezia or melena : Denies: flank pain, dysuria, urinary frequency, urinary urgency, urinary hesitancy or hematuria Musc: Denies: neck pain, back pain, extremity pain, joint swelling, joint warmth or deformity Neuro: Denies: headache(s), numbness in extremities, weakness in extremities, sensory changes, difficulty walking, frequent falls, dizziness, vertigo, behavioral changes, Slurred speech present or seizure-like activity Psych: Denies: anxiety, depression, suicidal ideation or homicidal ideation Endo: Denies: polyuria, polydipsia, tired all the time, cold intolerance or hot flashes Dong/Lymph: Denies: easy bruising or easy bleeding Medications/Allergies Home Medications Medication Instructions Recorded Confirmed Last Taken Type aspirin 81 mg tablet,delayed 81 mg PO DAILY 07/30/19 08/06/22 08/12/22 History release (Adult Low Dose Aspirin) fenofibrate nanocrystallized 48 mg 48 mg PO DAILY 07/30/19 08/06/22 08/12/22 His tory tablet folic acid 1 mg tablet 1 mg PO DAILY 07/30/19 08/06/22 08/12/22 History gabapentin 400 mg capsule 400 mg PO BID 07/30/19 08/06/22 08/12/22 History metformin 1,000 mg tablet 500 mg PO BID 07/30/19 08/06/22 08/12/22 History omeprazole 20 mg capsule,delayed 20 mg PO DAILY 07/30/19 08/06/22 08/12/22 History release rivaroxaban 20 mg tablet 20 mg PO DAILY 07/30/19 08/06/22 08/08/22 History rosuvastatin 10 mg tablet 10 mg PO DAILY 07/30/19 08/06/22 08/12/22 History terazosin 10 mg capsule 10 mg PO DAILY 07/30/19 08/06/22 08/12/22 History atenolol 25 mg tablet 25 mg PO DAILY #90 tabs 04/24/21 08/06/22 08/13/22 05:00 Rx lisinopril 5 mg tablet 5 mg PO DAILY #90 tabs 04/24/21 08/06/22 08/12/22 Rx glipizide 5 mg tablet 5 mg PO DAILY 10/20/21 08/06/22 08/12/22 History furosemide 20 mg tablet 60 mg PO DIRECTED 07/03/22 08/06/22 08/12/22 History omega-3 fatty acids [Fish Oil 1,000 mg PO DAILY 07/03/22 08/06/22 08/12/22 History Concentrate] potassium chloride 20 mEq 30 meq PO DAILY 07/03/22 08/06/22 08/12/22 History tablet,extended release prenat.vits,gene,sfo-xqdc-oafus 1 tab PO DAILY 07/03/22 08/06/22 08/12/22 History alogliptin 25 mg tablet 25 mg PO DAILY 08/06/22 08/06/22 08/06/22 History intraoperative Neuromonitoring #1 ea 08/13/22 Unknown Rx Allergies Allergy/AdvReac Type Severity Reaction Status Date / Time No Known Allergies Allergy Verified 08/09/22 10:48 Current Medications Generic Name Dose Route Start Last Admin Trade Name Freq PRN Reason Stop Dose Admin Docusate Sodium 100 mg 08/13/22 18:00 08/13/22 17:43 Docusate Sodium 100 Mg Capsule PO 100 mg BID RANDY Administration Gabapentin 400 mg 08/13/22 18:00 08/13/22 17:43 Gabapentin 400 Mg Capsule PO 400 mg BID RANDY Administration Cefazolin Sodium 2,000 mg/ 50 mls @ 100 mls/hr 08/13/22 15:00 08/13/22 15:53 Sodium Chloride IV 08/14/22 07:29 Infused Q8H RANDY Infusion Protocol Terazosin HCl 10 mg 08/13/22 21:00 08/13/22 20:52 Terazosin 5 Mg Capsule PO Not Given BEDTIME RANDY PFSH Acute PFSH: Medical History Atrial fibrillation CAD (coronary artery disease) CHF (congestive heart failure) Diabetes Hyperlipidemia Peripheral neuropathy Tobacco chew use Social History Smoking and tobacco status: former smoker Alcohol intake: never Vitals/I&O/Wt Last Vital Signs Temp 98.5 F 08/13/22 21:10 Pulse 82 08/13/22 21:10 Resp 27 H 08/13/22 21:10 BP 108/56 08/13/22 21:10 Pulse Ox 96 08/13/22 21:10 O2 Del Method 08/13/22 18:38 O2 Flow Rate 1 08/13/22 19:55 08/13/22 08/13/22 08/13/22 06:59 14:59 22:59 Intake Total 3150 / 3150 1490 / 4640 Output Total 1560 / 1560 400 / 1960 Balance 1590 / 1590 1090 / 2680 Physical Exam Narrative: General: No acute distress, AO x3 HEENT: PERRLA, pupils bilaterally equal and reactive, pallors not present Chest: Crackles to auscultation B/L all areas CVS: S1-S2 regular, no murmurs, no tachycardia, no gallops, no rubs Abdomen: Soft, nontender, no organomegaly, bowel sounds present Neuro: No focal deficits, no facial deformity, AO x3, power 5/5 in all limbs Urinary Catheter Management: Manrique: Cath Placed During This Visit: yes Reason for Continuing Indwelling Catheter: Other Urinary Catheter Date of Insertion: 08/13/22 Urinary Catheter Time of Insertion: 07:15 Data 08/13/22 18:32 08/06/22 09:20 A&P Assessment and plan (1) Hemorrhagic shock: Currently with blood pressure 75/49 after receiving 1 L of normal saline bolus. Patient is being moved to the ICU. Blood transfusion has just been started. We will start Levophed to maintain MAP greater than 65 (2) Acute blood loss anemia: Hemoglobin dropped from 14.4 preoperatively to 6.4 this evening. Started on 1 of 2 packed red blood cell transfusion. 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 Patient typically takes 60 mg of p.o. Lasix daily On exam he has signs of CHF at this time, this may have been precipitated by the fluid bolus he received today. Discontinue further IV fluids. We will use Levophed to maintain MAP if needed Lasix 40 mg IV now Closely monitor renal function and urine output with these interventions. Hold p.o. Lasix for now while receiving IV. (4) CAD (coronary artery disease): Denies any current chest pain. . Preoperative stress test on August 09, 2022 was normal (5) Atrial fibrillation: Currently this is rate controlled. Continue home dose of atenolol Stop Xarelto pending resolution of bleeding Qualifiers: Atrial fibrillation type: longstanding persistent Qualified Code(s): I48.11 - Longstanding persistent atrial fibrillation (6) Diabetes: Alogliptin and glipizide not on formulary. We will hold for now Change to insulin medium sliding scale, may be adjusted based on glycemic response Coding Level of Care Code Critical Care >/= 30 minutes Diagnoses Hemorrhagic shock R57.8 Acute blood loss anemia D62 CHF (congestive heart failure) I50.9 CAD (coronary artery disease) I25.10 Atrial fibrillation I48.11 Atrial fibrillation type: longstanding persistent Diabetes E11.9
[2022-08-13] MEDS: FUROsemide 10 mg/mL SDV 4mL 40 MG IVP (22:23)
[2022-08-13] MEDS: ketorolac 30 mg/mL INJ IVP (22:32)
[2022-08-13 23:02] LABS: Estmated Average Glucose 143; Hemoglobin A1C 6.6 % (4.0-6.0)
[2022-08-14] VITALS (59 sets, daily range): BP systolic 58–136; BP diastolic 38–85; PULSE 77–108; RESP 1–28; TEMP 36.6–38.3; O2SAT 91–99
--- NOTE | 2022-08-14 00:26 | PC.NURSE ---
Called stripping and booking machine operator at this time and asked her to page or transfer me to the [employer] Inspector [employer]pper orthopedic physician at this time. Asked final application reviewer MD at this time if they wanted me to leave the hemovac drain clamped and he stated to call Dr. Wing that would be his preference. Called stripping and booking machine operator back at this time and got transferred to Dr. Wing. Dr Wing stated to keep the hemovac drain clamped all night with no further orders.
[2022-08-14 04:32] LABS: Alanine Aminotransferase 14 U/L (0-41); Albumin Level 3.2 g/dL (3.5-5.2); Alkaline Phosphatase 46 U/L (40-130); Anion Gap 18.9 (5-19); Aspartate Amino Transferase 33 U/L (0-40); Blood Urea Nitrogen 30 mg/dL (8-23); Calcium 7.5 mg/dL (8.5-10.5); Carbon Dioxide 21 mmol/L (22-29); Chloride 105 mmol/L (98-107); Globulin 1.9 g/dL (1.3-4.6); Glucose 204 mg/dL (65-115); Osmolality Calculated 302 mOsm/kg (285-295); Potassium 4.9 mmol/L (3.5-5.1); Sodium 140 mmol/L (136-145); Total Bilirubin 0.2 mg/dL (0.15-1.2); Total Protein 5.1 g/dL (6.6-8.7)
[2022-08-14 04:37] LABS: Magnesium 1.6 mg/dL (1.7-2.3); NT Pro B Type Natriuretic Pept 1018 pg/mL (0-450)
[2022-08-14 05:15] LABS: Basophils % 0.1 %; Eosinophils % 0.1 %; Hemoglobin 10.8 g/dL (11.7-16.6); Lymphocytes # 1.4 10^3/uL (0.8-4.8); Lymphocytes % 20.3 %; Mean Corpuscular HGB Conc 31.8 g/dL (30.0-36.0); Mean Corpuscular Hemoglobin 30.7 pg (28.0-34.0); Mean Corpuscular Volume 96.6 fl (80-94); Mean Platelet Volume 11.2 fL (7.4-10.4); Monocytes # 0.9 10^3/uL (0.2-0.9); Monocytes % 13.6 %; Neutrophils % 65.6 %; Nucleated Red Blood Cells % 0 %; Platelet Count 107 10^3/cmm (130-400); Red Blood Count 3.52 10^6/uL (4.1-5.3); Red Cell Distribution Width 16.6 % (12.1-15.1); White Blood Count 6.7 10^3/uL (4.0-10.0)
[2022-08-14 05:35] LABS: Slide Review Slide Review Perform
[2022-08-14] MEDS: ceFAZolin 2,000 MG in sodium chloride 0.9% (plus) 50 ML 100 MG IV (06:01)
--- NOTE | 2022-08-14 07:35 | P.PN_ITS ---
Subjective Subjective: POD1 Patient resting comfortably. Denies any lightheadedness or dizziness. Denies any chest pain, shortness of breath. Vitals/I&O/Wt Last Vital Signs Temp 98.4 F 08/14/22 04:00 Pulse 100 08/14/22 06:45 Resp 22 H 08/14/22 06:45 BP 99/50 08/14/22 06:45 Pulse Ox 92 08/14/22 06:30 O2 Del Method 08/13/22 18:38 O2 Flow Rate 1 08/13/22 19:55 08/13/22 08/14/22 08/14/22 22:59 06:59 14:59 Intake Total 2340 / 5490 550 / 6040 Output Total 700 / 2260 500 / 2760 Balance 1640 / 3230 50 / 3280 Weight last 48 hrs Weight 306 lb Physical Exam Narrative: Patient presents alert and oriented x3 with a good general appearance normal mood and affect. Normal coordination normal stability. Mild tenderness around the incisional site with the incision appear to be healing les latisha. Hemovac drain intact. No signs of erythema or drainage. No signs of infection. Patient denies any fevers or chills. 5/5 motor strength both lower extremities with negative straight leg raise bilaterally. Calves are supple no medial thigh tenderness. Pulses are 2+ at the dorsalis pedis and posterior tibial region. Good capillary refill throughout normal sensation light touch both lower extremities. Urinary Catheter Management: Manrique: Cath Placed During This Visit: yes Reason for Continuing Indwelling Catheter: Accurate Measurement of Urinary Output in Critically Ill Patients Urinary Catheter Date of Insertion: 08/13/22 Urinary Catheter Time of Insertion: 07:15 Data 08/14/22 05:03 08/14/22 03:33 A&P Assessment and plan (1) Acute blood loss anemia: Physical therapy to mobilize the patient. Continue incentive spirometry for pulmonary toilet. Continue Hemovac drain to gravity. When medically stable okay with orthopedics transfer back to [facility] floor. Discontinue Manrique catheter when mobilizing around the room. (2) Status post lumbar spinal fusion: Attestations Medical Necessity Statement*: defer to Medical Team Coding Level of Care Code Acute Code for Chg Fwd Diagnoses Acute blood loss anemia D62 Status post lumbar spinal fusion Z98.1
[2022-08-14 07:53] LABS: Glucose Point of Care 190 mg/dL (70-110)
[2022-08-14] MEDS: insulin lispro 100 unit/1 mL SUBCUT ×3 (08:26→20:39)
[2022-08-14] MEDS: atenolol 50 mg Tablet 25 MG PO (08:27)
[2022-08-14] MEDS: folic acid 1 mg Tablet PO (08:27)
[2022-08-14] MEDS: aspirin 81 mg EC Tablet PO (08:27)
[2022-08-14] MEDS: omega-3 fatty acids 1,000 mg Capsule 1000 MG PO (08:27)
[2022-08-14] MEDS: docusate sodium 100 mg Capsule PO ×2 (08:27→17:18)
[2022-08-14] MEDS: pantoprazole DR 40 mg Tablet PO (08:27)
[2022-08-14] MEDS: potassium chloride ER 10 mEq Tablet 30 MEQ PO (08:27)
[2022-08-14] MEDS: gabapentin 400 mg Capsule PO ×2 (08:27→17:18)
[2022-08-14] MEDS: atorvastatin 40 mg Tablet PO (08:28)
[2022-08-14] MEDS: prenatal vitamin Capsule 1 CAP PO (09:23)
[2022-08-14] MEDS: fenofibrate 48 mg Tablet PO (09:23)
[2022-08-14] MEDS: HYDROcodone-acetaminophen 5-325 mg Tablet PO ×2 (10:00→15:00)
[2022-08-14 11:38] LABS: Glucose Point of Care 154 mg/dL (70-110)
--- NOTE | 2022-08-14 11:39 | PM.PN ---
Subjective Subjective: Patient is orthostatic positive Fluid overloaded No extremity edema Family at the bedside asking why they were not informed overnight I did tell him that we will let orthopedics know about their concerns Recheck H&H Start gentle fluid for orthostatic hypotension Patient became hypotensive blood work with PT We will discontinue aspirin and atenolol Vitals/I&O/Wt Last Vital Signs Temp 97.9 F 08/14/22 07:54 Pulse 77 08/14/22 07:55 Resp 17 08/14/22 07:54 BP 93/38 08/14/22 07:54 Pulse Ox 95 08/14/22 07:55 O2 Del Method 08/14/22 07:55 O2 Flow Rate 2 08/14/22 07:55 08/13/22 08/14/22 08/14/22 22:59 06:59 14:59 Intake Total 2340 / 5490 550 / 6040 540 / 540 Output Total 700 / 2260 500 / 2760 Balance 1640 / 3230 50 / 3280 540 / 540 Weight last 48 hrs Weight 138.799 kg Physical Exam Narrative: Patient is laying left lateral position Hemodrain has about 75 mill of blood Patient is awake and alert Active signs of heart failure with lower extremity edema Currently on 2 L nasal cannula S1, S2 Nonfocal neuro exam Family at the bedside Manrique catheter with dilute urine Urinary Catheter Management: Manrique: Cath Placed During This Visit: yes Reason for Continuing Indwelling Catheter: Accurate Measurement of Urinary Output in Critically Ill Patients Urinary Catheter Date of Insertion: 08/13/22 Urinary Catheter Time of Insertion: 07:15 Data 08/14/22 05:03 08/14/22 03:33 A&P Assessment and plan (1) Status post lumbar spinal fusion: (2) CAD (coronary artery disease): (3) CHF (congestive heart failure): (4) Hemorrhagic shock: (5) Acute blood loss anemia: (6) Diabetes: (7) Peripheral neuropathy: (8) Atrial fibrillation: Qualifiers: Atrial fibrillation type: longstanding persistent Qualified Code(s): I48.11 - Longstanding persistent atrial fibrillation Plan Postop anemia Hemoglobin today 10.8 Holding anticoagulating agents which she takes for A-fib Status post 2 unit PRBC Continue Lasix Hemoglobin 10.8 Discontinued prednisone, Tylenol and aspirin We will keep patient on SCDs Gentle fluid hydration today Diastolic CHF Keep hemoglobin above 8 Continue IV diuretics on board High hemorrhagic/hypovolemic shock Off Levophed today Monitor H&H Orthostatic hypotension: Discontinue Albrecht and Discontinue Manrique catheter Working with PT A-fib without RVR: Secondary to orthostatic hypotension hold atenolol DEDE related to hypotension, hold lisinopril, We will monitor him 1 more day in the ICU Attestations Medical Necessity Statement*: As per orthopedic Diagnoses Status post lumbar spinal fusion Z98.1 CAD (coronary artery disease) I25.10 CHF (congestive heart failure) I50.9 Hemorrhagic shock R57.8 Acute blood loss anemia D62 Diabetes E11.9 Peripheral neuropathy G62.9 Atrial fibrillation I48.11 Atrial fibrillation type: longstanding persistent
[2022-08-14] MEDS: sodium chloride 0.9% 1,000 ML 75 ML IV (11:58)
[2022-08-14 13:36] LABS: Hematocrit 32.1 % (42.0-52.0)
[2022-08-14 16:53] LABS: Glucose Point of Care 139 mg/dL (70-110)
[2022-08-14] MEDS: ketorolac 30 mg/mL INJ IVP (18:15)
[2022-08-14 20:41] LABS: Glucose Point of Care 185 mg/dL (70-110)
[2022-08-14 21:40] LABS: Basophils % 0.4 %; Eosinophils % 0.4 %; Hematocrit 29.3 % (42.0-52.0); Hemoglobin 9.6 g/dL (11.7-16.6); Lymphocytes % 24.4 %; Mean Corpuscular HGB Conc 32.8 g/dL (30.0-36.0); Mean Corpuscular Hemoglobin 31.6 pg (28.0-34.0); Mean Corpuscular Volume 96.4 fl (80-94); Mean Platelet Volume 10.5 fL (7.4-10.4); Monocytes # 0.9 10^3/uL (0.2-0.9); Monocytes % 11.3 %; Neutrophils # 5.22 10^3/uL (1.8-7.7); Neutrophils % 63.1 %; Nucleated Red Blood Cells % 0 %; Platelet Count 101 10^3/cmm (130-400); Red Blood Count 3.04 10^6/uL (4.1-5.3); Red Cell Distribution Width 16.9 % (12.1-15.1); White Blood Count 8.3 10^3/uL (4.0-10.0)
[2022-08-14] MEDS: FUROsemide 10 mg/mL SDV 4mL 40 MG IVP (21:52)
[2022-08-15] VITALS (94 sets, daily range): BP systolic 79–150; BP diastolic 33–115; PULSE 86–112; RESP 8–35; TEMP 36.7–39.6; O2SAT 77–100
--- NOTE | 2022-08-15 01:22 | PC.NURSE ---
Dressing changed to back. Blood drainage noted. painted with betadine and silverlon dressing placed over incision. Drain sponge applied over hemovac. Tolerated well.
[2022-08-15] MEDS: acetaminophen 325 mg Tablet 650 MG PO ×3 (02:41→21:02)
--- NOTE | 2022-08-15 03:18 | PC.NURSE ---
Blood cultures ordered per Dr. Sellers, states she will order some antibiotics. Temp decreased to 100.4.
[2022-08-15 03:34] LABS: Basophils % 0.5 %; Eosinophils % 0.3 %; Hematocrit 29.9 % (42.0-52.0); Hemoglobin 9.7 g/dL (11.7-16.6); Lymphocytes # 1.3 10^3/uL (0.8-4.8); Lymphocytes % 21.5 %; Mean Corpuscular HGB Conc 32.4 g/dL (30.0-36.0); Mean Corpuscular Hemoglobin 31.2 pg (28.0-34.0); Mean Corpuscular Volume 96.1 fl (80-94); Mean Platelet Volume 10.7 fL (7.4-10.4); Monocytes # 0.8 10^3/uL (0.2-0.9); Monocytes % 12.7 %; Neutrophils # 3.92 10^3/uL (1.8-7.7); Neutrophils % 64.7 %; Nucleated Red Blood Cells % 0 %; Platelet Count 102 10^3/cmm (130-400); Red Blood Count 3.11 10^6/uL (4.1-5.3); Red Cell Distribution Width 16.7 % (12.1-15.1); White Blood Count 6.1 10^3/uL (4.0-10.0)
--- NOTE | 2022-08-15 03:40 | XRR_ITS ---
PROCEDURE INFORMATION: Exam: XR Chest Exam date and time: 08/15/2022 3:47 AM Age: 81 years old Clinical indication: Patient HX: New onset of 103 degree fever. History of chf and afib. Underwent lumbar surgery on 08/13/2022. ; Additional info: Diastolic chf TECHNIQUE: Imaging protocol: Radiologic exam of the chest. Views: 1 view. COMPARISON: CR XR chest 1V [id number] 04/23/2018 1:26 PM FINDINGS: Lungs: Lung volumes are low. There is mild central and lower lung predominant ground-glass opacity. There is mild ill-defined opacity in the medial right lung base. Pleural spaces: There is no pleural effusion or pneumothorax. Heart/Mediastinum: There is mild cardiac enlargement. Bones/joints: There is severe degenerative disease of both shoulders. No acute fracture. XR/XR chest 1V portable [id number] IMPRESSION: Low lung volumes with mild central lung predominant ground-glass opacity and ill-defined opacity in the right base. Some component of atelectasis is likely present. Superimposed infection or pulmonary edema may also be present.
[2022-08-15 03:53] LABS: Anion Gap 15.4 (5-19); Blood Urea Nitrogen 35 mg/dL (8-23); Calcium 7.8 mg/dL (8.5-10.5); Carbon Dioxide 22 mmol/L (22-29); Chloride 103 mmol/L (98-107); Glucose 158 mg/dL (65-115); Osmolality Calculated 293 mOsm/kg (285-295); Potassium 4.4 mmol/L (3.5-5.1); Sodium 136 mmol/L (136-145)
[2022-08-15] MEDS: cefepime 2,000 MG in sodium chloride 0.9% (plus) 50 ML 100 MG IV ×2 (03:55→15:07)
--- NOTE | 2022-08-15 04:03 | PC.NURSE ---
Urine, covid swab, blood cultures, chest x-ray done. New antibiotics started.
--- NOTE | 2022-08-15 04:23 | PC.PHAR ---
Pharmacokinetic dosing service Date: 08/15/22 Time: 042 Objective: Patient: Jimenez Leach Floor: ICU-12 Age: 81 yo Serum creatinine: 1.5 mg/dL Height: 72.0 Inches Weight (kg): 138.799 Diagnosis: Relevant medical/social history: Cultures and sensitivities: Other labs: Assessment: IBW (kg): 77.60 Dosing wt(kg): 102.1 Estimated Creatinine clearance (ml/min): 43.8 CRCL method: Cockcroft and Gault using ibw(default). Drug selected: Vancomycin Loading dose (mg): 0 Vd (liters): 91.9 (factor used: 0.9 L/kg) Ld (hr-1): 0.041 Half life (hrs): 16.91 Recommended dose: 1500 mg Interval: 18 hrs Infusion time (hrs): 1.5 Predicted peak (mcg/mL): 30.3 Predicted trough (mcg/mL): 15.40 Adjusted body weight was selected for vancomycin dosing. To switch back, select the total body weight option above. Renal function is stable [ ] /unstable [ ] Recommendations: Give Vancomycin 1500 mg q 18 hrs with an expected Cpeak of 30.3 mcg/ml and an expected Ctrough of 15.40 mcg/ml Renal dosing of other antibiotics (review renal dosing of other medications and list guidelines here): Thank you for the consult, will continue to follow. Signature: [facility]
[2022-08-15 04:24] LABS: Add Urine Microscopic? YES; Bilirubin Urine Neg (Negative); Blood Urine 2+ (Negative); Glucose Urine UA Norm (Normal); Ketones Urine Negative (Negative); Leukocyte Esterase Urine Negative (Negative); Nitrate Urine Negative (Negative); Protein Urine Neg (Negative); Urine Appearance Clear (CLEAR); Urine Color Yellow (Yellow); Urobilinogen Urine Norm (Negative); pH Urine 5 (5-7)
[2022-08-15 04:27] LABS: WBC Urine 0-4 /hpf (0-5)
[2022-08-15 04:28] LABS: Bacteria Urine TRACE /hpf; Sperm Urine 2+ /hpf; Squamous Epithelial Cell Urine 0-4 /hpf (0-5)
[2022-08-15] MEDS: ketorolac 30 mg/mL INJ IVP (04:30)
[2022-08-15] MEDS: vancomycin 1,500 MG/300 ML PIGGYBACK 200 MG IV ×2 (04:30→23:12)
[2022-08-15 05:48] LABS: Adenovirus Not Detected (NOT DETECT); Chlamydia Pneumoniae Not Detected (NOT DETECT); Coronavirus 229E,HKU1,NL63,OC4 Not Detected (NOT DETECT); Human Metapneumovirus Not Detected (NOT DETECT); Human Rhinovirus/Enterovirus Not Detected (NOT DETECT); Influenza A Not Detected (NOT DETECT); Influenza A H1 Not Detected (NOT DETECT); Influenza A H1-2009 Not Detected (NOT DETECT); Influenza A H3 Not Detected (NOT DETECT); Influenza B Not Detected (NOT DETECT); Mycoplasma Pneumoniae Not Detected (NOT DETECT); Parainfluenza Virus Type 1 Not Detected (NOT DETECT); Parainfluenza Virus Type 2 Not Detected (NOT DETECT); Parainfluenza Virus Type 3 Not Detected (NOT DETECT); Parainfluenza Virus Type 4 Not Detected (NOT DETECT); Respiratory Syncytial Virus A Not Detected (NOT DETECT); Respiratory Syncytial Virus B Not Detected (NOT DETECT); SARS-COV-2 Not Detected (NOT DETECT)
--- NOTE | 2022-08-15 06:24 | P.PN_ITS ---
Subjective Subjective: POD 2 Patient resting comfortably. States his legs have improved since surgery. Tried to mobilize with physical therapy yesterday but his pressures were soft and was not able to mobilize around the room. Denies any headaches chest pain. Vitals/I&O/Wt Last Vital Signs Temp 99.4 F 08/15/22 03:45 Pulse 97 08/15/22 06:00 Resp 21 H 08/15/22 04:00 BP 139/66 08/15/22 04:00 Pulse Ox 94 08/15/22 04:00 O2 Del Method 08/15/22 04:00 O2 Flow Rate 2 08/15/22 00:15 08/14/22 08/14/22 08/15/22 14:59 22:59 06:59 Intake Total 540 / 540 581.910 / 1121.910 269.406 / 1391.316 Output Total 330 / 330 245 / 575 100 / 675 Balance 210 / 210 336.910 / 546.910 169.406 / 716.316 Weight last 48 hrs Weight 300 lb 14.4 oz Weight 306 lb Physical Exam Narrative: Patient presents alert and oriented x3 with a good general appearance normal mood and affect. Mild tenderness around the incisional site with the incision appear to be clean and dry. No signs of erythema or drainage. No signs of infection. 4/5 motor strength both lower extremities with nega tive straight leg raise bilaterally. Calves are supple no medial thigh tenderness. Pulses are 2+ at the dorsalis pedis and posterior tibial region. Good capillary refill throughout normal sensation light touch both lower extremities. Urinary Catheter Management: Manrique: Cath Placed During This Visit: yes, but has since been removed by the nurse Reason for Continuing Indwelling Catheter: Decision to DC Catheter Urinary Catheter Date of Insertion: 08/13/22 Urinary Catheter Time of Insertion: 07:15 Date Urinary Catheter Removed: 08/14/22 Time Urinary Catheter Discontinued: 15:49 Data 08/15/22 02:40 08/15/22 02:40 Micro: Microbiology 08/15/22 03:59 Blood Culture - Preliminary Blood SPECIMEN COLLECTED 08/15/22 03:57 Blood Culture - Preliminary Blood SPECIMEN COLLECTED A&P Assessment and plan (1) Status post lumbar spinal fusion: Patient attempted physical therapy but has been hypotensive. He spiked a 103 temp currently afebrile. Chest x-ray was performed. Encouraged incentive spirometry for pulmonary toilet. We will discontinue the Hemovac drain. Incisi on appears clean and dry. Okay from an orthopedic standpoint to transfer to the floor when medically stable. (2) Acute blood loss anemia: Attestations Medical Necessity Statement*: Patient has been hypotensive we will defer to the medical team Coding Level of Care Code Acute Code for Chg Fwd Diagnoses Status post lumbar spinal fusion Z98.1 Acute blood loss anemia D62
--- NOTE | 2022-08-15 06:56 | PC.NURSE ---
Hemovac drain removed from right lower back. Tolerated well.
[2022-08-15 07:38] LABS: Glucose Point of Care 156 mg/dL (70-110)
[2022-08-15] MEDS: insulin lispro 100 unit/1 mL SUBCUT ×4 (09:04→21:02)
[2022-08-15] MEDS: folic acid 1 mg Tablet PO (09:05)
[2022-08-15] MEDS: omega-3 fatty acids 1,000 mg Capsule 1000 MG PO (09:05)
[2022-08-15] MEDS: gabapentin 400 mg Capsule PO ×2 (09:05→17:01)
[2022-08-15] MEDS: prenatal vitamin Capsule 1 CAP PO (09:05)
[2022-08-15] MEDS: pantoprazole DR 40 mg Tablet PO (09:05)
[2022-08-15] MEDS: docusate sodium 100 mg Capsule PO ×2 (09:05→17:01)
[2022-08-15] MEDS: potassium chloride ER 10 mEq Tablet 30 MEQ PO (09:06)
[2022-08-15] MEDS: fenofibrate 48 mg Tablet PO (09:06)
[2022-08-15] MEDS: FUROsemide 20 mg Tablet PO (09:07)
--- NOTE | 2022-08-15 11:52 | PM.PN ---
Subjective Subjective: Adequate urine output Creatinine improved Febrile overnight Right lower lobe pneumonia noted on chest x-ray Requested blood culture, UA Antibiotics started overnight No active signs of sepsis Patient is not acidotic Still requiring Levophed at 6 mics COVID-negative Vitals/I&O/Wt Last Vital Signs Temp 99.0 F 08/15/22 09:15 Pulse 101 H 08/15/22 10:15 Resp 25 H 08/15/22 10:15 BP 126/103 08/15/22 10:15 Pulse Ox 87 L 08/15/22 10:15 O2 Del Method 08/15/22 08:02 O2 Flow Rate 2 08/15/22 00:15 08/14/22 08/15/22 08/15/22 22:59 06:59 14:59 Intake Total 581.910 / 1121.910 269.406 / 9352.581 2549.955 / 1020.955 Output Total 245 / 575 100 / 675 300 / 300 Balance 336.910 / 546.910 169.406 / 716.316 720.955 / 720.955 Weight last 48 hrs Weight 136.486 kg Weight 138.799 kg Physical Exam Narrative: Patient is fluid overloaded Currently on room air Saturating well Levophed at bedside Lower extremities with 2+ edema Drain has been removed Manrique catheter removed as well Abdomen soft, bowel sounds sluggish S1, S2 Patient is arousable GCS 15 nonfocal neuro exam Fatigued and lethargic Urinary Catheter Management: Manrique: Cath Placed During This Visit: yes, but has since been removed by the nurse Reason for Continuing Indwelling Catheter: Decision to DC Catheter Urinary Catheter Date of Insertion: 08/13/22 Urinary Catheter Time of Insertion: 07:15 Date Urinary Catheter Removed: 08/14/22 Time Urinary Catheter Discontinued: 15:49 Data 08/15/22 02:40 08/15/22 02:40 Micro: Microbiology 08/15/22 03:59 Blood Culture - Preliminary Blood SPECIMEN COLLECTED 08/15/22 03:57 Blood Culture - Preliminary Blood SPECIMEN COLLECTED A&P Assessment and plan (1) Status post lumbar spinal fusion: (2) CAD (coronary artery disease): (3) Hemorrhagic shock: (4) Acute blood loss anemia: (5) Diabetes: (6) Peripheral neuropathy: (7) Atrial fibrillation: Qualifiers: Atrial fibrillation type: longstanding persistent Qualified Code(s): I48.11 - Longstanding persistent atrial fibrillation Plan Hemorrhagic shock Levophed to be weaned off today Febrile episode related to right lower lobe pneumonia COVID-negative Requested blood culture, UA Postop day 2 Patient became hypotensive when work with PT he was given a liter of fluids for orthostasis He is getting Lasix as he is clinically fluid overloaded Continue antibiotics, incentive spirometry Manrique catheter Hemovac drain has been removed Patient is not ready to be transferred because he is on vasopressors requiring Levophed at 6 mics Acute on chronic anemia postoperative hemorrhagic shock Hemoglobin stable Status post 2 unit PRBC History of A-fib not in RVR Holding anticoagulating agent Continue AV rosmery blocking agent Patient is full code Continue PT Once Levophed has been weaned off and blood pressure stays normal then we can transfer him out of ICU Attestations Medical Necessity Statement*: Continue ICU management Diagnoses Status post lumbar spinal fusion Z98.1 CAD (coronary artery disease) I25.10 Hemorrhagic shock R57.8 Acute blood loss anemia D62 Diabetes E11.9 Peripheral neuropathy G62.9 Atrial fibrillation I48.11 Atrial fibrillation type: longstanding persistent
[2022-08-15 12:26] LABS: Glucose Point of Care 214 mg/dL (70-110)
[2022-08-15 14:26] LABS: Base Excess VBG -3.5 mmol/L (-3.0-3.0); Blood Gas Sample Type Venous; HCO3 VBG 22.5 mmol/L (24-28); PCO2 VBG 44.2 mmHg (41-51); PO2 VBG 35.8 mmHg (25-40); Venous Blood Gas Hematocrit 27.9 % (42-52); pH VBG 7.32 (7.32-7.42)
[2022-08-15 17:10] LABS: Glucose Point of Care 192 mg/dL (70-110)
--- NOTE | 2022-08-15 18:38 | PC.NURSE ---
SHIft SUmmary: Uneventful shift. Patient rested in bed for most of the day. He was weaned off of levophed and after getting off levophed he was able to get up to the chair. Was in a chair for about 2 hours. REquires 2 person assist. Very weak.
[2022-08-15 19:23] LABS: Add Urine Microscopic? YES; Bilirubin Urine Neg (Negative); Blood Urine 2+ (Negative); Glucose Urine UA 1+ (Normal); Ketones Urine Negative (Negative); Leukocyte Esterase Urine Negative (Negative); Nitrate Urine Negative (Negative); Protein Urine Neg (Negative); Specific Gravity, Urine 1.015 (1.005-1.030); Urine Appearance Clear (CLEAR); Urine Color Yellow (Yellow); Urobilinogen Urine Neg (Negative); pH Urine 5 (5-7)
[2022-08-15 19:25] LABS: Add Urine Culture? No; Hyaline Casts Urine RARE /lpf; RBC Urine RARE /hpf (0-2); Squamous Epithelial Cell Urine RARE /hpf (0-5)
--- NOTE | 2022-08-15 20:40 | PC.NURSE ---
Tylenol Patient's temperature 100.8 orally. High fevers noted on the previous night; PO tylenol ordered PRN for fevers >101.5. Dr. Sellers contacted and order received to administer PO tylenol for fevers. See MAR for administration.
[2022-08-15 22:15] LABS: Glucose Point of Care 205 mg/dL (70-110)
[2022-08-16] VITALS (41 sets, daily range): BP systolic 97–170; BP diastolic 53–97; PULSE 86–135; RESP 10–27; TEMP 36.9–37.6; O2SAT 90–99; BMI 41.3
[2022-08-16 03:45] LABS: Base Excess VBG -2.8 mmol/L (-3.0-3.0); Blood Gas Operator Identificat JB; Blood Gas Sample Site Not specified; Blood Gas Sample Type Venous; HCO3 VBG 23.5 mmol/L (24-28); Oxygen Device ROOM AIR; PCO2 VBG 47.3 mmHg (41-51); PO2 VBG 36.9 mmHg (25-40); Venous Blood Gas Hematocrit 27.7 % (42-52); pH VBG 7.31 (7.32-7.42)
[2022-08-16 03:52] LABS: Basophils % 0.3 %; Eosinophils # 0.1 10^3/uL (0.0-0.8); Eosinophils % 1.2 %; Hematocrit 27.6 % (42.0-52.0); Hemoglobin 8.4 g/dL (11.7-16.6); Lymphocytes # 1.5 10^3/uL (0.8-4.8); Lymphocytes % 22.4 %; Mean Corpuscular HGB Conc 30.4 g/dL (30.0-36.0); Mean Corpuscular Hemoglobin 30.3 pg (28.0-34.0); Mean Corpuscular Volume 99.6 fl (80-94); Mean Platelet Volume 10.6 fL (7.4-10.4); Monocytes # 0.8 10^3/uL (0.2-0.9); Monocytes % 11.5 %; Neutrophils # 4.32 10^3/uL (1.8-7.7); Neutrophils % 63.6 %; Nucleated Red Blood Cells % 0 %; Platelet Count 95 10^3/cmm (130-400); Red Blood Count 2.77 10^6/uL (4.1-5.3); Red Cell Distribution Width 16.4 % (12.1-15.1); White Blood Count 6.8 10^3/uL (4.0-10.0)
[2022-08-16] MEDS: cefepime 2,000 MG in sodium chloride 0.9% (plus) 50 ML 100 MG IV ×2 (04:11→15:54)
[2022-08-16 04:12] LABS: Anion Gap 14.9 (5-19); Blood Urea Nitrogen 27 mg/dL (8-23); Calcium 7.9 mg/dL (8.5-10.5); Carbon Dioxide 21 mmol/L (22-29); Chloride 106 mmol/L (98-107); Glucose 179 mg/dL (65-115); Osmolality Calculated 296 mOsm/kg (285-295); Potassium 3.9 mmol/L (3.5-5.1); Sodium 138 mmol/L (136-145)
--- NOTE | 2022-08-16 06:26 | PC.NURSE ---
Bloody Drainage KARIN Xie at bedside. Small amount of bloody drainage noted on medial back dressing and shown to PA. Order received to change dressing with silver dressing. Dressing changed.
--- NOTE | 2022-08-16 06:29 | PM.PN ---
Subjective Subjective: POD 3 Patient more alert and talkative this morning. Reports mild back pain states his legs are improving. He set up at the bedside yesterday with physical therapy assistance. Mild shortness of breath denies any chest pain or headaches. Denies dizziness or lightheadedness. Vitals/I&O/Wt Last Vital Signs Temp 98.5 F 08/16/22 04:00 Pulse 107 H 08/16/22 05:57 Resp 20 H 08/16/22 04:30 BP 130/71 08/16/22 04:30 Pulse Ox 94 08/16/22 04:30 O2 Del Method 08/16/22 04:00 O2 Flow Rate 2 08/15/22 20:00 08/15/22 08/15/22 08/16/22 14:59 22:59 06:59 Intake Total 1081.915 / 1081.915 830 / 1911.915 830 / 2741.915 Output Total 300 / 300 795 / 1095 850 / 1945 Balance 781.915 / 781.915 35 / 816.915 -20 / 796.915 Weight last 48 hrs Weight 304 lb 14.4 oz Weight 300 lb 14.4 oz Physical Exam Narrative: Patient presents alert and oriented x3 with a good general appearance normal mood and affect. Normal coordination normal stability. Mild tenderness around the incisional site with the incision appears slight bloody drainage. No signs of erythema. No signs of infection. 5/5 motor strength both lower extremities with negative straight leg raise bilaterally. Calves are supple no medial thigh tenderness. Pulses are 2+ at the dorsalis pedis and posterior tibial region. Good capillary refill throughout normal sensation light touch both lower extremities. Urinary Catheter Management: Manrique: Cath Placed During This Visit: yes, but has since been removed by the nurse Reason for Continuing Indwelling Catheter: Decision to DC Catheter Urinary Catheter Date of Insertion: 08/13/22 Urinary Catheter Time of Insertion: 07:15 Date Urinary Catheter Removed: 08/14/22 Time Urinary Catheter Discontinued: 15:49 Data 08/16/22 03:32 08/16/22 03:32 Micro: Microbiology 08/15/22 03:59 Blood Culture - Preliminary Blood NEGATIVE TO DATE 08/15/22 03:57 Blood Culture - Preliminary Blood NEGATIVE TO DATE A&P Assessment and plan (1) Status post lumbar spinal fusion: Blood pressures have been improving. We will continue with physical therapy to hopefully begin mobilizing. Encourage incentive spirometry for pulmonary toilet. Dressing change with new Silverlon dressing. Okay per from orthopedic standpoint to transfer back to [facility] when medically stable. Consult social and human services assistant for placement when medically stable. (2) Acute blood loss anemia: Attestations Medical Necessity Statement*: Defer to medical team Coding Level of Care Code Acute Code for Chg Fwd Diagnoses Status post lumbar spinal fusion Z98.1 Acute blood loss anemia D62
--- NOTE | 2022-08-16 06:30 | PC.NURSE ---
Bloody Drainage PA Rojas at bedside. Small amount of bloody drainage noted on medial back dressing; PA shown. Order received to change dressing with silver impregnated dressing.
[2022-08-16 09:18] LABS: Glucose Point of Care 143 mg/dL (70-110)
[2022-08-16] MEDS: FUROsemide 20 mg Tablet PO (09:35)
[2022-08-16] MEDS: folic acid 1 mg Tablet PO (09:35)
[2022-08-16] MEDS: potassium chloride ER 10 mEq Tablet 30 MEQ PO (09:35)
[2022-08-16] MEDS: prenatal vitamin Capsule 1 CAP PO (09:35)
[2022-08-16] MEDS: omega-3 fatty acids 1,000 mg Capsule 1000 MG PO (09:35)
[2022-08-16] MEDS: gabapentin 400 mg Capsule PO ×2 (09:35→17:44)
[2022-08-16] MEDS: docusate sodium 100 mg Capsule PO ×2 (09:35→17:44)
[2022-08-16] MEDS: insulin lispro 100 unit/1 mL SUBCUT ×4 (09:35→20:31)
[2022-08-16] MEDS: pantoprazole DR 40 mg Tablet PO (09:35)
[2022-08-16] MEDS: HYDROcodone-acetaminophen 5-325 mg Tablet PO ×2 (11:18→15:53)
--- NOTE | 2022-08-16 11:39 | P.PN_ITS ---
Subjective Subjective: We can transfer him out of ICU Hemoglobin stable Off Levophed Constipated Afebrile Creatinine improving Vitals/I&O/Wt Last Vital Signs Temp 98.5 F 08/16/22 04:00 Pulse 108 H 08/16/22 09:30 Resp 19 H 08/16/22 09:30 BP 156/92 08/16/22 09:30 Pulse Ox 98 08/16/22 09:30 O2 Del Method 08/16/22 09:00 O2 Flow Rate 2 08/15/22 20:00 08/15/22 08/16/22 08/16/22 22:59 06:59 14:59 Intake Total 830 / 1911.915 830 / 2741.915 Output Total 795 / 1095 850 / 1945 Balance 35 / 816.915 -20 / 796.915 Weight last 48 hrs Weight 138.3 kg Weight 136.486 kg Physical Exam Narrative: Clinical signs of fluid overload improving Currently on room air Pleasant and cooperative Fatigued and lethargic but improved significantly since yesterday Abdomen distended nontender bowel sound present S1, S2 variable Leg swelling improving Manrique catheter has been removed Drain has been removed as well Urinary Catheter Management: Manrique: Cath Placed During This Visit: yes, but has since been removed by the nurse Reason for Continuing Indwelling Catheter: Decision to DC Catheter Urinary Catheter Date of Insertion: 08/13/22 Urinary Catheter Time of Insertion: 07:15 Date Urinary Catheter Removed: 08/14/22 Time Urinary Catheter Discontinued: 15:49 Data 08/16/22 03:32 08/16/22 03:32 Micro: Microbiology 08/15/22 03:45 Urine Culture - Preliminary Urine,Clean Catch 08/15/22 03:59 Blood Culture - Preliminary Blood NEGATIVE TO DATE 08/15/22 03:57 Blood Culture - Preliminary Blood NEGATIVE TO DATE A&P Assessment and plan (1) Status post lumbar spinal fusion: (2) CHF (congestive heart failure): (3) CAD (coronary artery disease): (4) Hemorrhagic shock: (5) Acute blood loss anemia: (6) Lumbar stenosis with neurogenic claudication: (7) DDD (degenerative disc disease), lumbosacral: (8) Peripheral neuropathy: (9) Atrial fibrillation: Qualifiers: Atrial fibrillation type: longstanding persistent Qualified Code(s): I48.11 - Longstanding persistent atrial fibrillation Plan DEDE: Resolved Postoperative hemorrhagic shock: Resolved Postoperative fever related to possible aspiration pneumonia continue antibiotics Afebrile Cultures negative A-fib without significant RVR Holding off on anticoagulating agent Hemoglobin stable Off Levophed Working with PT Manrique catheter discontinued Depending on PT evaluation will decide on disposition Home health versus SNF Constipated: He has stool softeners on board as well SCDs for DVT prophylaxis CHF mild exacerbation, continue diuretics Can transfer him out of ICU today Attestations Medical Necessity Statement*: As per orthopedic Coding Level of Care Code 10943 Moderate MDM includes number and complexity of problems actively addressed during encounter, amount and/or complexity of data reviewed/ordered and described risk of complication, morbidity or mortality of management as docu mented Diagnoses Status post lumbar spinal fusion Z98.1 CHF (congestive heart failure) I50.9 CAD (coronary artery disease) I25.10 Hemorrhagic shock R57.8 Acute blood loss anemia D62 Lumbar stenosis with neurogenic claudication M48.062 DDD (degenerative disc disease), lumbosacral M51.37 Peripheral neuropathy G62.9 Atrial fibrillation I48.11 Atrial fibrillation type: longstanding persistent
[2022-08-16 13:07] LABS: Glucose Point of Care 266 mg/dL (70-110)
[2022-08-16 17:40] LABS: Glucose Point of Care 242 mg/dL (70-110)
[2022-08-16] MEDS: vancomycin 1,500 MG/300 ML PIGGYBACK 200 MG IV (17:43)
[2022-08-16] MEDS: sennosides-docusate Tablet 1 TAB PO (17:44)
[2022-08-16 20:04] LABS: Add Urine Microscopic? YES; Bilirubin Urine Neg (Negative); Blood Urine 3+ (Negative); Glucose Urine UA 4+ (Normal); Ketones Urine Negative (Negative); Leukocyte Esterase Urine Negative (Negative); Nitrate Urine Negative (Negative); Protein Urine 1+ (Negative); Urine Appearance Clear (CLEAR); Urine Color Yellow (Yellow); Urobilinogen Urine 1 mg/dL (Negative); WBC Urine RARE /hpf (0-5); pH Urine 6 (5-7)
[2022-08-16 20:05] LABS: Add Urine Culture? No; Squamous Epithelial Cell Urine RARE /hpf (0-5)
[2022-08-16 20:29] LABS: Glucose Point of Care 257 mg/dL (70-110)
--- NOTE | 2022-08-16 21:05 | PC.NURSE ---
Transfer Patient transferred to [place] [address] via bed. All belongings, including walker, placed at bedside. Charge nurse and [employer] aware of arrival. All vitals stable. Patient stated no further needs at this time.
[2022-08-16 21:47] LABS: Glucose Point of Care 244 mg/dL (70-110)
[2022-08-17] VITALS (7 sets, daily range): BP systolic 112–152; BP diastolic 63–77; PULSE 86–126; RESP 18–19; TEMP 36.4–37.9; O2SAT 92–98
[2022-08-17] MEDS: cefepime 2,000 MG in sodium chloride 0.9% (plus) 50 ML 100 MG IV (03:16)
[2022-08-17 06:15] LABS: Basophils % 0.4 %; Eosinophils # 0.1 10^3/uL (0.0-0.8); Eosinophils % 1.5 %; Hematocrit 26.8 % (42.0-52.0); Lymphocytes # 1.5 10^3/uL (0.8-4.8); Lymphocytes % 19.2 %; Mean Corpuscular HGB Conc 33.6 g/dL (30.0-36.0); Mean Corpuscular Hemoglobin 31.7 pg (28.0-34.0); Mean Corpuscular Volume 94.4 fl (80-94); Mean Platelet Volume 11.3 fL (7.4-10.4); Monocytes # 0.8 10^3/uL (0.2-0.9); Monocytes % 9.8 %; Neutrophils # 5.33 10^3/uL (1.8-7.7); Neutrophils % 68.5 %; Nucleated Red Blood Cells % 0 %; Platelet Count 118 10^3/cmm (130-400); Red Blood Count 2.84 10^6/uL (4.1-5.3); Red Cell Distribution Width 16.3 % (12.1-15.1); White Blood Count 7.8 10^3/uL (4.0-10.0)
[2022-08-17 06:22] LABS: Glucose Point of Care 215 mg/dL (70-110)
[2022-08-17 06:42] LABS: Slide Review Slide Review Perform
--- NOTE | 2022-08-17 06:42 | P.PN_ITS ---
Subjective Subjective: POD 4 Patient evaluated in room 270 bed 1 sitting up in bed more alert responsive having some mild back pain. Reports mild lightheadedness. Denies any shortness of breath or chest pain. Vitals/I&O/Wt Last Vital Signs Temp 99.9 F H 08/17/22 06:00 Pulse 100 08/17/22 06:00 Resp 18 08/17/22 06:00 BP 150/70 08/17/22 06:00 Pulse Ox 96 08/17/22 06:00 O2 Del Method 08/16/22 20:51 O2 Flow Rate 2 08/15/22 20:00 08/16/22 08/16/22 08/17/22 14:59 22:59 06:59 Intake Total 480 / 480 710 / 1190 650 / 1840 Output Total 300 / 300 800 / 1100 1100 / 2200 Balance 180 / 180 -90 / 90 -450 / -360 Weight last 48 hrs Weight 298 lb Weight 304 lb 14.4 oz Physical Exam Narrative: Patient presents alert and oriented x3 with a good general appearance normal mood and affect. Normal coordination normal stability. Mild tenderness around the incisional site with the incision appear to be healing nicely. No signs of erythema or drainage. No signs of infection. Patient denies any fevers or chills. 4/5 motor strength both lower extremities with negative straight leg raise bilaterally. Calves are supple no medial thigh tenderness. Pulses are 1+ at the dorsalis pedis and posterior tibial region. Good capillary refill throughout normal sensation light touch both lower extremities. Urinary Catheter Management: Manrique: Cath Placed During This Visit: yes, but has since been removed by the nurse Reason for Continuing Indwelling Catheter: Accurate Measurement of Urinary Output in Critically Ill Patients Urinary Catheter Date of Insertion: 08/16/22 Urinary Catheter Time of Insertion: 18:00 Date Urinary Catheter Removed: 08/14/22 Time Urinary Catheter Discontinued: 15:49 Data 08/16/22 03:32 08/16/22 03:32 Micro: Microbiology 08/15/22 03:45 Urine Culture - Preliminary Urine,Clean Catch 08/15/22 03:59 Blood Culture - Preliminary Blood NEGATIVE TO DATE 08/15/22 03:57 Blood Culture - Preliminary Blood NEGATIVE TO DATE A&P Assessment and plan (1) Status post lumbar spinal fusion: Encourage incentive spirometer for pulmonary toilet. We will have physical therapy continue to work with mobilization. Manrique catheter was reimplanted and the patient states she does not want removed. Left oncology social worker consult for placement. (2) Acute blood loss anemia: Attestations Medical Necessity Statement*: Defer to medical team Coding Level of Care Code Acute Code for Chg Fwd Diagnoses Status post lumbar spinal fusion Z98.1 Acute blood loss anemia D62
--- NOTE | 2022-08-17 07:41 | PM.PN ---
Subjective Subjective: Follow-up with physical therapist today to see if patient's could benefit from home exercise program if we can discharge him with a walker Patient does not want his Manrique catheter to be removed however secondary to orthostatic hypotension his Albrecht and was on hold which I would resume today He does have history of BPH We should have voiding trial before his discharge We will touch base with orthopedics today Vitals/I&O/Wt Last Vital Signs Temp 97.5 F L 08/17/22 07:24 Pulse 126 H 08/17/22 07:24 Resp 18 08/17/22 07:24 BP 112/63 08/17/22 07:24 Pulse Ox 92 08/17/22 07:24 O2 Del Method 08/17/22 07:24 O2 Flow Rate 2 08/15/22 20:00 08/16/22 08/17/22 08/17/22 22:59 06:59 14:59 Intake Total 710 / 1190 650 / 1840 Output Total 800 / 1100 1100 / 2200 Balance -90 / 90 -450 / -360 Weight last 48 hrs Weight 135.171 kg Weight 138.3 kg Physical Exam Narrative: Patient is doing much better He is on room air Not in active pain Hemodynamically stable Lotion the swelling has improved to some extent as well Manrique catheter in place Abdomen soft S1, S2 variable with A-fib RVR Urinary Catheter Management: Manrique: Cath Placed During This Visit: yes, but has since been removed by the nurse Reason for Continuing Indwelling Catheter: Accurate Measurement of Urinary Output in Critically Ill Patients Urinary Catheter Date of Insertion: 08/16/22 Urinary Catheter Time of Insertion: 18:00 Date Urinary Catheter Removed: 08/14/22 Time Urinary Catheter Discontinued: 15:49 Data 08/17/22 06:01 08/16/22 03:32 Micro: Microbiology 08/15/22 03:45 Urine Culture - Preliminary Urine,Clean Catch 08/15/22 03:59 Blood Culture - Preliminary Blood NEGATIVE TO DATE 08/15/22 03:57 Blood Culture - Preliminary Blood NEGATIVE TO DATE A&P Assessment and plan (1) Status post lumbar spinal fusion: (2) CAD (coronary artery disease): (3) CHF (congestive heart failure): (4) Hemorrhagic shock: (5) Acute blood loss anemia: (6) Encounter for pre-operative cardiovascular clearance: (7) Diabetes: (8) Peripheral neuropathy: (9) Atrial fibrillation: Qualifiers: Atrial fibrillation type: longstanding persistent Qualified Code(s): I48.11 - Longstanding persistent atrial fibrillation (10) Urinary retention: Plan Postoperative anemia: Stable Status post 2 unit Patient worked with PT Had 1 bowel movement We will do voiding trial before he gets discharged As per PT notes patient did well with four-wheel walker patient is eager to return home We will touch base with PT and orthopedics today if patient could be discharged home after voiding trial Added Albrecht in which was on hold due to orthostatic hypotension Fever episodes subsided Cultures negative Patient doing well on room air We will give him antibiotics for pneumonia Attestations Medical Necessity Statement*: Continue medical management Diagnoses Status post lumbar spinal fusion Z98.1 CAD (coronary artery disease) I25.10 CHF (congestive heart failure) I50.9 Hemorrhagic shock R57.8 Acute blood loss anemia D62 Encounter for pre-operative cardiovascular clearance Z01.810 Diabetes E11.9 Peripheral neuropathy G62.9 Atrial fibrillation I48.11 Atrial fibrillation type: longstanding persistent Urinary retention R33.9
[2022-08-17] MEDS: gabapentin 400 mg Capsule PO (09:49)
[2022-08-17] MEDS: prenatal vitamin Capsule 1 CAP PO (09:49)
[2022-08-17] MEDS: lisinopril 5 mg Tablet PO (09:49)
[2022-08-17] MEDS: FUROsemide 20 mg Tablet PO (09:49)
[2022-08-17] MEDS: omega-3 fatty acids 1,000 mg Capsule 1000 MG PO (09:49)
[2022-08-17] MEDS: sennosides-docusate Tablet 1 TAB PO (09:49)
[2022-08-17] MEDS: potassium chloride ER 10 mEq Tablet 30 MEQ PO (09:49)
[2022-08-17] MEDS: folic acid 1 mg Tablet PO (09:50)
[2022-08-17] MEDS: atenolol 50 mg Tablet 25 MG PO (09:50)
[2022-08-17] MEDS: insulin lispro 100 unit/1 mL SUBCUT (09:50)
[2022-08-17] MEDS: docusate sodium 100 mg Capsule PO (09:50)
[2022-08-17] MEDS: pantoprazole DR 40 mg Tablet PO (09:50)
[2022-08-17 10:14] LABS: Vancomycin Trough 9.1 ug/mL (10-15)
--- NOTE | 2022-08-20 17:54 | PM.DCS ---
Discharge Providers Date of Admission: 08/13/22 12:10 Date of Discharge: August 17, 2022 Attending Provider at Admission: Jermaine Wing DO Attending Provider at Discharge: Jermaine Wing DO Primary Care Provider: Rose Milton MD Diagnoses at Discharge Discharge Diagnosis (1) Status post lumbar spinal fusion: Status: Acute (2) CAD (coronary artery disease): Status: Acute (3) CHF (congestive heart failure): Status: Acute (4) Hemorrhagic shock: Status: Resolved (5) Acute blood loss anemia: Status: Acute (6) Encounter for pre-operative cardiovascular clearance: Status: Inactive (7) Diabetes: Status: Acute (8) Peripheral neuropathy: Status: Acute (9) Atrial fibrillation: Status: Acute Qualifiers: Atrial fibrillation type: longstanding persistent Qualified Code(s): I48.11 - Longstanding persistent atrial fibrillation (10) Urinary retention: Status: Inactive Reason for Visit Reason for Visit: [id number],35837/M48.062/M51. Hospital Course Hospital Course Stayed in ICU for 2 days than transitioned to the floor Physical Exam Urinary Catheter Management: Manrique: Cath Placed During This Visit: yes, but has since been removed by the nurse Reason for Continuing Indwelling Catheter: Required Immobilization for Trauma or Surgery or Anesthesia Urinary Catheter Date of Insertion: 08/16/22 Urinary Catheter Time of Insertion: 18:00 Date Urinary Catheter Removed: 08/17/22 Time Urinary Catheter Discontinued: 10:42 Discharge Data Studies Completed and Pending Completed Studies During Hospitalization Category Date Time Status XR chest 1V portable [id number] Routine Exams 08/15/22 03:40 Completed Radiology Impressions Chest X-Ray 08/15/22 03:40 IMPRESSION: Low lung volumes with mild central lung predominant ground-glass opacity and ill-defined opacity in the right base. Some component of atelectasis is likely present. Superimposed infection or pulmonary edema may also be present. Laboratory Results WBC 7.8 10^3/uL (4.0-10.0) 08/17/22 06:01 Corrected WBC Cancelled 08/14/22 03:33 RBC 2.84 10^6/uL (4.1-5.3) L 08/17/22 06:01 Hgb 9.0 g/dL (11.7-16.6) L 08/17/22 06:01 Hct 26.8 % (42.0-52.0) L 08/17/22 06:01 MCV 94.4 fl (80-94) H D 08/17/22 06:01 MCH 31.7 pg (28.0-34.0) 08/17/22 06:01 MCHC 33.6 g/dL (30.0-36.0) D 08/17/22 06:01 RDW 16.3 % (12.1-15.1) H 08/17/22 06:01 Plt Count 118 10^3/cmm (130-400) L 08/17/22 06:01 MPV 11.3 fL (7.4-10.4) H 08/17/22 06:01 Gran % Cancelled 08/14/22 03:33 Neut % (Auto) 68.5 % 08/17/22 06:01 Lymph % (Auto) 19.2 % 08/17/22 06:01 [place] % (Auto) 9.8 % 08/17/22 06:01 Eos % (Auto) 1.5 % 08/17/22 06:01 Baso % (Auto) 0.4 % 08/17/22 06:01 Neut # (Auto) 5.33 10^3/uL (1.8-7.7) 08/17/22 06:01 Lymph # (Auto) 1.5 10^3/uL (0.8-4.8) 08/17/22 06:01 [place] # (Auto) 0.8 10^3/uL (0.2-0.9) 08/17/22 06:01 Eos # (Auto) 0.1 10^3/uL (0.0-0.8) 08/17/22 06:01 Baso # (Auto) 0.0 10^3/uL (0.0-0.1) 08/17/22 06:01 Absolute Gran (auto) Cancelled 08/14/22 03:33 Nucleated RBC % (auto) 0 % 08/17/22 06:01 Total Counted 100 (0-100) 08/06/22 09:20 Atypical Lymphs % 0.0 % (0-5) 08/06/22 09:20 Absolute Neutrophils 3.4 10^3/cmm (1.4-6.5) 08/06/22 09:20 Segmented Neutrophils 57 % 08/06/22 09:20 Abs Segm Neuts (Man) 3.4 10/cmm (1.6-7.1) 08/06/22 09:20 Band Neutrophils 0.0 % 08/06/22 09:20 Abs Band Neuts (Man) 0.0 10^3/cmm (0.0-1.2) 08/06/22 09:20 Absolute Lymphocytes 2.0 10^3/cmm (1.2-3.4) 08/06/22 09:20 Lymphocytes (Manual) 34 % 08/06/22 09:20 Monocytes (Manual) 6.0 % 08/06/22 09:20 Absolute Monocytes 0.4 10^3/cmm (0.1-0.6) 08/06/22 09:20 Eosinophils (Manual) 3 % 08/06/22 09:20 Absolute Eosinophils 0.1 10^3/cmm (0.0-0.7) 08/06/22 09:20 Basophils (Manual) 0.0 % 08/06/22 09:20 Absolute Basophils 0.0 10^3/cmm (0.0-0.2) 08/06/22 09:20 Nucleated RBCs # 0.0 /100WBC 08/17/22 06:01 Platelet Estimate Normal (Normal) 08/06/22 09:20 Specimen Type Venous 08/16/22 03:32 Sample Site Not specified 08/16/22 03:32 Oliver Test N/a 08/16/22 03:32 VBG pH 7.31 (7.32-7.42) L 08/16/22 03:32 VBG pCO2 47.3 mmHg (41-51) 08/16/22 03:32 VBG pO2 36.9 mmHg (25-40) 08/16/22 03:32 VBG HCO3 23.5 mmol/L (24-28) L 08/16/22 03:32 VBG Base Excess -2.8 mmol/L (-3.0-3.0) 08/16/22 03:32 VBG Hematocrit 27.7 % (42-52) L 08/16/22 03:32 O2 Delivery Device Room air 08/16/22 03:32 Reweaver ID Segundo 08/16/22 03:32 Sodium 138 mmol/L (136-145) 08/16/22 03:32 Potassium 3.9 mmol/L (3.5-5.1) 08/16/22 03:32 Chloride 106 mmol/L (98-107) 08/16/22 03:32 Carbon Dioxide 21 mmol/L (22-29) L 08/16/22 03:32 Anion Gap 14.9 (5-19) 08/16/22 03:32 BUN 27 mg/dL (8-23) H 08/16/22 03:32 Creatinine 1.2 mg/dL (0.7-1.2) 08/16/22 03:32 GFR Calculation Not Reportable 08/16/22 03:32 Glucose 179 mg/dL (65-115) H 08/16/22 03:32 POC Glucose 215 mg/dL (70-110) H 08/17/22 06:06 Estimat Average Glucose 143 08/13/22 09:20 Hemoglobin A1c 6.6 % (4.0-6.0) H 08/13/22 09:20 Calculated Osmolality 296 mOsm/kg (285-295) H 08/16/22 03:32 Calcium 7.9 mg/dL (8.5-10.5) L 08/16/22 03:32 Magnesium 1.6 mg/dL (1.7-2.3) L 08/14/22 03:33 Total Bilirubin 0.2 mg/dL (0.15-1.2) 08/14/22 03:33 AST 33 U/L (0-40) 08/14/22 03:33 ALT 14 U/L (0-41) 08/14/22 03:33 Alkaline Phosphatase 46 U/L (40-130) 08/14/22 03:33 NT-Pro-B Natriuret Pep 1018 pg/mL (0-450) H 08/14/22 03:33 Total Protein 5.1 g/dL (6.6-8.7) L 08/14/22 03:33 Albumin 3.2 g/dL (3.5-5.2) L 08/14/22 03:33 Globulin 1.9 g/dL (1.3-4.6) 08/14/22 03:33 Urine Color Yellow (Yellow) 08/16/22 19:30 Urine Appearance Clear (CLEAR) 08/16/22 19:30 Urine pH 6 (5-7) 08/16/22 19:30 Ur Specific Bivalve 1.010 (1.005-1.030) 08/16/22 19:30 Urine Protein 1+ (Negative) H 08/16/22 19:30 Urine Glucose (UA) 4+ (Normal) H 08/16/22 19:30 Urine Ketones Negative (Negative) 08/16/22 19:30 Urine Blood 3+ (Negative) H 08/16/22 19:30 Urine Nitrate Negative (Negative) 08/16/22 19:30 Urine Bilirubin Neg (Negative) 08/16/22 19:30 Urine Urobilinogen 1 mg/dL (Negative) H 08/16/22 19:30 Ur Leukocyte Esterase Negative (Negative) 08/16/22 19:30 Urine RBC 5-10 /hpf (0-2) H 08/16/22 19:30 Urine WBC Rare /hpf (0-5) 08/16/22 19:30 Ur Squamous Epith Cells Rare /hpf (0-5) 08/16/22 19:30 Amorphous Sediment Not Reportable 08/16/22 19:30 Urine Bacteria None /hpf (NONE) 08/16/22 19:30 Hyaline Casts Rare /lpf 08/15/22 19:06 Urine Sperm 2+ /hpf 08/15/22 03:45 Vancomycin Trough 9.1 ug/mL (10-15) L 08/17/22 09:36 Coronavirus 229E (PCR) Not detected (NOT DETECT) 08/15/22 03:55 SARS-CoV-2 (PCR) Not detected (NOT DETECT) 08/15/22 03:55 Blood Type O Positive 08/13/22 06:18 Rho(D) Type Positive 08/13/22 06:18 Antibody Screen Negative 08/13/22 06:18 Crossmatch See Detail 08/13/22 06:18 Vitals Last Vital Signs Temp 97.5 F L 08/17/22 11:53 Pulse 102 H 08/17/22 11:53 Resp 18 08/17/22 11:53 BP 112/63 08/17/22 11:53 Pulse Ox 98 08/17/22 11:53 O2 Del Method 08/17/22 08:00 O2 Flow Rate 2 08/15/22 20:00 Discharge Plan Discharge Patient Disposition: Home Health Service Condition: Stable Prescriptions: New Stool Softener-Laxative 8.6-50 mg Tablet 1 tab PO BID Qty: 10 0RF lisinopril 5 mg Tablet 5 mg PO DAILY Qty: 30 0RF amoxicillin-pot clavulanate 875-125 mg tablet 1 tab PO BID Qty: 10 0RF albuterol sulfate 90 mcg/actuation HFA aerosol inhaler 2 inh inhalation Q8H PRN (Reason: shortness of breath or wheezing) Qty: 6.7 0RF oxycodone 10 mg tablet 10 mg PO DAILY PRN (Reason: pain) Qty: 10 0RF oxycodone-acetaminophen 10-325 mg tablet 1 tab PO Q4H PRN (Reason: pain) 7 Days Qty: 40 0RF Continued aspirin [Adult Low Dose Aspirin] 81 mg tablet,delayed release (DR/EC) 81 mg PO DAILY fenofibrate nanocrystallized 48 mg tablet 48 mg PO DAILY folic acid 1 mg tablet 1 mg PO DAILY gabapentin 400 mg capsule 400 mg PO BID metformin 1,000 mg tablet 500 mg PO BID omeprazole 20 mg capsule,delayed release(DR/EC) 20 mg PO DAILY rivaroxaban 20 mg tablet 20 mg PO DAILY rosuvastatin 10 mg tablet 10 mg PO DAILY terazosin 10 mg capsule 10 mg PO DAILY glipizide 5 mg tablet 5 mg PO DAILY furosemide 20 mg tablet 60 mg PO DIRECTED Rx Instructions: 40mg in AM and 20mg at noon omega-3 fatty acids 1,000 mg PO DAILY atenolol 25 mg tablet 25 mg PO DAILY Qty: 90 1RF lisinopril 5 mg tablet 5 mg PO DAILY Qty: 90 1RF potassium chloride 20 mEq tablet extended release 30 meq PO DAILY prenat.vits,gene,gig-imhk-scbnu Tablet 1 tab PO DAILY (DME) intraoperative Neuromonitoring See Rx Instructions .Route .MEDSUPPLY Qty: 1 0RF Rx Instructions: As directed alogliptin 25 mg Tablet 25 mg PO DAILY Discharge Orders: Discharge Order (Routine); Ordered 08/17/22 Ordered By: Ofelia Delarosa Other Ambulatory Orders: DME: Hospital Bed (Order) Location: None Selected Ordered By: Jermaine Wing DME: Walker (Order) Timeframe: 3 Months Location: None Selected Ordered By: Ofelia Delarosa Ref[place]: [facility]) [Outside] Jermaine Wing DO [Physician] - 08/23/22 3:45 pm Rose Milton MD [Primary Care Provider] - 08/22/22 9:30 am ([facility] has been notified. Will call with appointment.) Discharge Diet: Advance as tolerated Discharge Activity: Limit activity as instructed Patient Instructions: Lisinopril (By mouth), Oxycodone/Acetaminophen (By mouth), Amoxicillin/Clavulanate Potassium (By mouth), Laxative, Stool Softeners (By mouth), Lumbar Spinal Fusion (GEN), Opioid Safety Activity Restrictions/Additional Instructions: Thank you for choosing [facility] for your care! The following is a list of instructions, from your provider, to follow upon your discharge to ensure you have the optimal recovery from your recent injury or surgery. Follow-up care is a womack part of your treatment and safety. Be sure to make and go to all appointments and call your doctor if you are having problems. If you do not already have a follow-up appointment made, call Dr. Wing's] office in the next 1-3 days to make follow up appointment for [1-2] weeks at [phone]. It is also a good idea to know your test results and keep a list of the medicines you take. Medications will be prescribed for you at your provider's discretion. These medications are to be used as instructed; if they are taken more often that prescribed they will not be refilled early and in most cases will not be refilled at all. > When a refill is needed, you should contact pippa gutierrez 2-3 business days before your prescription runs out. Medications will NOT be refilled by inspector outside steam distribution providers after hours! > Many pain medications contain Tylenol (Acetaminophen). Do not consume more than 4,000 mg of Tylenol per day in total with any combination of medications. > Pain medications can cause constipation. Please use an over the counter stool softener as directed, while taking pain medications. Consult your local pharmacist with questions or recommendations on stool softeners. If constipation persists, contact our office or your primary care provider. > While under our care, you are not to receive pain medications or other controlled substances from any other provider unless our office is notified and approves. Any attempts to do so will result in refusal to prescribe any further pain medications and possible dismissal from our practice. ? Walking is essential for the healing process after surgery. We would like you to slowly advance your walking. This should be done on relatively flat clear ground (inside or out) or can be done on a treadmill. Remember this goal does not have to happen all at once, slowly increase your distance and duration. This can be broken into more more than one walk per day as tolerated. Patients who walk as directed after surgery rarely require Physical Therapy. In the unlikely event this issue arises your provider will direct hospital staff to make the appropriate arrangements. ? No lifting over 5 pounds {a gallon of milk) or bending/twisting until further notice. Each of these activities places an unnecessary amount of stress onto the body and can impede the delicate healing process. > Instead of bending at the waist, keep your back straight and bend at the knees. > Instead of twisting your torso, keep your back straight and turn your entire body with your feet. ? You may sleep in any position which makes you comfortable. Many patients find comfort sleeping in a reclining chair. It is not abnormal to have difficulty sleeping for the first several weeks following your surgery. We recommend trying Benadry! or Tylenol PM as directed to help with your sleeping difficulties. Both medications are over the counter and available without prescription. ? NO SMOKING!!! Smoking dramatically increases the probability of developing postoperative wound infections. ? Common complaints after lumbar and/or thoracic spine surgery include, but are not limited to: numbness and/or tingling in the legs, pain around the incision and surrounding tissues, muscle spasms, or stiffness of the middle to low back. Contact our office if these symptoms persist or if an acute change occurs. ? No driving for the first 3-5days, and not while taking narcotics until seen at your follow-up appointment and cleared. There are no restrictions for riding on short trips, however if you take a longer trip, arrangements should be made to make regular stops to get out of the vehicle and stretch . ? Swelling is an unfortunate event that will take place with any surgery and is the primary source of your postoperative discomfort. While walking and regular approved activities helps control inflammation, there are additional steps you can take to minimize swelling. > Place ice over the surgical site and surrounding tissue for twenty minutes, followed by applying a low/medium heat (heating pad) for an additional twenty minutes every 1-2 hours as needed for painrelief. > You may use of over the counter anti-inflammatory medications (Ibuprofen, Motrin, Aleve, Advil, etc) as directed on the package label. These types of medicines will significantly reduce the amount of discomfort you experience after surgery from swelling. It should be noted that if you have and allergy to any of these medications, or a history of ulcers or kidney disease you should consult you primary care provider prior to starting these medications. Discharge Attestations Time Spent in Discharge Care*: less than 30 min Quality Metrics Clinical Quality Measures [ No reported AMI, CVA or VTE this stay] Coding Level of Care Code Acute Code for Chg Fwd Diagnoses Status post lumbar spinal fusion Z98.1 CAD (coronary artery disease) I25.10 CHF (congestive heart failure) I50.9 Hemorrhagic shock R57.8 Acute blood loss anemia D62 Encounter for pre-operative cardiovascular clearance Z01.810 Diabetes E11.9 Peripheral neuropathy G62.9 Atrial fibrillation I48.11 Atrial fibrillation type: longstanding persistent Urinary retention R33.9
== END 2022-08-17 11:50 | disposition home or self-care (01) | DRG 453 ==
LOC: MEDSURG 16:29 → ICU 21:30 → MEDSURG 08-14 05:50 → ICU 08-14 08:00 → MEDSURG 08-16 20:42
PROVIDERS: Anesthesiology; Internal Medicine; Physician Assistant; Student in an Organized Health Care Education/Training Program; Admitting Provider Orthopaedic Surgery; PCP Family Medicine; Visit Provider Orthopaedic Surgery
PROC: 0RG707J Fusion of 2 to 7 Thoracic Vertebral Joints with Autologous Tissue Substitute, Posterior Approach, Anterior Column, Open Approach (ICD-10-PCS; CPT 22612; principal; 2022-08-13 07:00)
PROC: 0RG707J Fusion of 2 to 7 Thoracic Vertebral Joints with Autologous Tissue Substitute, Posterior Approach, Anterior Column, Open Approach (ICD-10-PCS; CPT 63005; 2022-08-13 07:00)
DX: M48.062 Spinal stenosis, lumbar region with neurogenic claudication (principal); I50.33 Acute on chronic diastolic (congestive) heart failure; J69.0 Pneumonitis due to inhalation of food and vomit; T81.19XA Other postprocedural shock, initial encounter; D62 Acute posthemorrhagic anemia; I48.11 Longstanding persistent atrial fibrillation; N17.9 Acute kidney failure, unspecified; Z68.41 Body mass index [BMI] 40.0-44.9, adult; I25.10 Atherosclerotic heart disease of native coronary artery without angina pectoris; Z95.5 Presence of coronary angioplasty implant and graft; I11.0 Hypertensive heart disease with heart failure; E11.42 Type 2 diabetes mellitus with diabetic polyneuropathy; E78.5 Hyperlipidemia, unspecified; F17.220 Nicotine dependence, chewing tobacco, uncomplicated; N40.1 Benign prostatic hyperplasia with lower urinary tract symptoms; R33.8 Other retention of urine; I95.1 Orthostatic hypotension; E66.01 Morbid (severe) obesity due to excess calories; Y83.8 Other surgical procedures as the cause of abnormal reaction of the patient, or of later complication, without mention of misadventure at the time of the procedure
CPT/HCPCS: 36415; 36416; 36430; 51702; 71045; 76000; 80048; 80053; 80202; 81001; 82803; 82962; 83036; 83735; 83880; 85007; 85014; 85018; 85025; 85027; 86850; 86900; 86920; 87040; 87086; 87635; 96372; 97110; 97116; 97161; 97530; A9270; C1713; J0131; J0690; J0692; J1100; J1170; J1644; J1815; J1885; J1940; J2370; J2405; J2704; J3010; J3370; J3490; J7030; J7040; J7060; J7120; P9016; P9045

== ENCOUNTER → 2022-08-23 15:33 | Outpatient (BNVA) | payer OTHER, SELFPAY | PROVIDERS: PCP Family Medicine; Visit Provider Orthopaedic Surgery | DX: Z47.89 Encounter for other orthopedic aftercare (principal); Z98.1 Arthrodesis status | CPT/HCPCS: 99024 ==

== ENCOUNTER → 2022-08-30 11:25 | Outpatient (BNVA) | payer OTHER, SELFPAY | PROVIDERS: PCP Family Medicine; Visit Provider Physician Assistant | DX: Z98.1 Arthrodesis status (principal) | CPT/HCPCS: 72100; 99024 ==

== ENCOUNTER → 2022-09-06 11:52 | Outpatient (BNVA) | payer OTHER, SELFPAY | PROVIDERS: PCP Family Medicine; Visit Provider Physician Assistant | DX: Z98.1 Arthrodesis status (principal) | CPT/HCPCS: 72100; 99024 ==

== ENCOUNTER 2022-09-27 10:02 | Outpatient (CLI) | payer OTHER, SELFPAY ==
--- NOTE | 2022-09-27 10:09 | US_ITS ---
WS: [id number] RENAL ULTRASOUND HISTORY: CHRONIC KIDNEY DZ STAGE 3A COMPARISON: None available. TECHNIQUE: 2-D and color Doppler imaging of the kidney submitted. Right kidney: 12.4 cm x 4.8 cm x 6.5 cm. Cortex: 1.8 cm Normal echogenicity with no hydronephrosis or mass. Left kidney: 12.3 cm x 4.8 cm x 6.0 cm. Cortex: 1.3 cm Normal size kidney. There are 2 cortical cyst within the superior pole. The larger measures 2.3 x 2.4 x 2.1 cm. No solid mass or obstruction. Aorta: Normal. Urinary Bladder: Mild diffuse bladder wall thickening. No discrete mass. US/US renal BI* [id number] IMPRESSION: 1. No solid renal mass or renal obstruction. 2. Two cortical cysts upper pole LEFT kidney. The largest with a maximum diame ter of 2.4 cm.
== END 2022-09-27 10:03 | disposition home or self-care (01) ==
LOC: RAD 10:03
PROVIDERS: PCP Family Medicine; Visit Provider Internal Medicine
DX: N18.31 Chronic kidney disease, stage 3a (principal)
CPT/HCPCS: 76770

== ENCOUNTER 2022-10-16 09:32 | Outpatient (CLI) | payer OTHER, SELFPAY ==
--- NOTE | 2022-10-16 09:43 | XRR_ITS ---
PROCEDURE INFORMATION: Exam: XR Lumbosacral Spine Exam date and time: 10/16/2022 10:36 AM Age: 81 years old Clinical indication: Device placement; Internal orthopedic prosthetic device, implant or graft thoracolumbar spine; Prior surgery; Surgery date: Post-operative (0-2 days); Surgery type: --rods in lower back; Additional info: Post op, ap/lat TECHNIQUE: Imaging protocol: Radiologic exam of the lumbosacral spine. Views: 2 or 3 views. COMPARISON: CR XR lumbar spine 2-3V* [id number] 09/06/2022 11:53 AM FINDINGS: Bones/joints: There is multilevel intervertebral disc space narrowing consistent with severe osteoarthritis. Laminectomy defect is seen L3 vertebral body.. No acute fracture. Normal alignment. There is heavy orthopedic hardware with metallic transpedicular screws and rods in place from T10 to the iliac bones.. Since there is no evidence of deformity displacement or fracture of the orthopedic hardware. Soft tissues: Calcified aorta without aneurysm XR/XR lumbar spine 2-3V* [id number] IMPRESSION: 1. No acute findings. 2. Severe lumbar spine osteoarthritis. 3. Extensive orthopedic hardware posterior elements as described. 4. Laminectomy defect L3 vertebral body low sugar low.
== END 2022-10-16 09:33 | disposition home or self-care (01) ==
PROVIDERS: PCP Family Medicine; Visit Provider Physician Assistant
DX: M47.816 Spondylosis without myelopathy or radiculopathy, lumbar region (principal); Z98.1 Arthrodesis status
CPT/HCPCS: 72100

== ENCOUNTER → 2023-01-01 11:00 | Outpatient (BNVA) | payer OTHER, SELFPAY | PROVIDERS: PCP Family Medicine; Visit Provider Internal Medicine Cardiovascular Disease | DX: I11.0 Hypertensive heart disease with heart failure (principal); I50.30 Unspecified diastolic (congestive) heart failure; I25.10 Atherosclerotic heart disease of native coronary artery without angina pectoris; E78.5 Hyperlipidemia, unspecified; I48.11 Longstanding persistent atrial fibrillation; E11.9 Type 2 diabetes mellitus without complications; F17.220 Nicotine dependence, chewing tobacco, uncomplicated; Z79.84 Long term (current) use of oral hypoglycemic drugs | CPT/HCPCS: 99214 ==

== ENCOUNTER → 2023-07-05 10:52 | Outpatient (BNVA) | payer OTHER, SELFPAY | PROVIDERS: PCP Family Medicine; Visit Provider Nurse Practitioner Family | DX: I48.11 Longstanding persistent atrial fibrillation (principal); I25.10 Atherosclerotic heart disease of native coronary artery without angina pectoris; Z87.891 Personal history of nicotine dependence; Z79.01 Long term (current) use of anticoagulants | CPT/HCPCS: 99214 ==

== ENCOUNTER → 2024-01-21 10:30 | Outpatient (BNVA) | payer OTHER, SELFPAY | PROVIDERS: PCP Family Medicine; Visit Provider Nurse Practitioner Family | DX: I48.11 Longstanding persistent atrial fibrillation (principal); I50.32 Chronic diastolic (congestive) heart failure; I25.10 Atherosclerotic heart disease of native coronary artery without angina pectoris; Z87.891 Personal history of nicotine dependence; Z79.01 Long term (current) use of anticoagulants | CPT/HCPCS: 99214 ==

== ENCOUNTER → 2024-07-23 11:08 | Outpatient (BNVA) | payer OTHER, SELFPAY | PROVIDERS: PCP Family Medicine; Visit Provider Internal Medicine Cardiovascular Disease | DX: R07.9 Chest pain, unspecified (principal); I48.91 Unspecified atrial fibrillation; R94.31 Abnormal electrocardiogram [ECG] [EKG] | CPT/HCPCS: 93005; 99215 ==

== ENCOUNTER 2024-11-09 09:38 | Outpatient (CLI) | payer OTHER, SELFPAY ==
[2024-11-09 10:45] LABS: Basophils % 0.6 %; Eosinophils % 0.6 %; Hematocrit 51.2 % (37-53); Lymphocytes # 2.2 10^3/uL (0.8-4.8); Lymphocytes % 35.3 %; Mean Corpuscular HGB Conc 32.2 g/dL (30-55); Mean Corpuscular Hemoglobin 31.9 pg (27-33); Mean Corpuscular Volume 98.8 fl (82-101); Mean Platelet Volume 9.8 fL (7.4-10.4); Monocytes # 0.6 10^3/uL (0.2-0.9); Neutrophils # 3.37 10^3/uL (1.8-7.7); Neutrophils % 54.3 %; Nucleated Red Blood Cells % 0 %; Platelet Count 151 10^3/cmm (157-399); Red Blood Count 5.18 10^6/uL (3.85-5.65); Red Cell Distribution Width 15.5 % (12.1-15.1); White Blood Count 6.21 10^3/uL (3.29-11.43)
[2024-11-09 11:03] LABS: Albumin Level 4.3 g/dL (3.5-5.2); Anion Gap 19.2 (5-19); Blood Urea Nitrogen 24 mg/dL (8-23); Calcium 9.7 mg/dL (8.5-10.5); Carbon Dioxide 20 mmol/L (22-29); Chloride 100 mmol/L (98-107); Glucose 148 mg/dL (65-115); Phosphorus 2.8 mg/dL (2.5-4.5); Potassium 4.2 mmol/L (3.5-5.1); Sodium 135 mmol/L (136-145)
[2024-11-09 13:34] LABS: Creatinine Urine, Random 48 mg/dL (39-259); Microalbum Creatinine Ratio Ur 21 mg/dL (0-20); Microalbumin Random Urine 1 ug/dL (0-20)
== END 2024-11-09 09:39 | disposition home or self-care (01) ==
PROVIDERS: PCP Family Medicine; Visit Provider Internal Medicine Nephrology
DX: N18.2 Chronic kidney disease, stage 2 (mild) (principal)
CPT/HCPCS: 36415; 80069; 82044; 85025

== ENCOUNTER → 2025-01-22 10:08 | Outpatient (BNVA) | payer OTHER, SELFPAY | PROVIDERS: PCP Family Medicine; Visit Provider Nurse Practitioner Family | DX: I25.10 Atherosclerotic heart disease of native coronary artery without angina pectoris (principal); I50.9 Heart failure, unspecified; I48.91 Unspecified atrial fibrillation; Z79.01 Long term (current) use of anticoagulants; Z72.0 Tobacco use; Z95.5 Presence of coronary angioplasty implant and graft | CPT/HCPCS: 99213 ==

== ENCOUNTER → 2025-04-20 13:13 | Outpatient (BNVA) | payer OTHER, SELFPAY | PROVIDERS: PCP Family Medicine; Referring Provider Family Medicine; Visit Provider Nurse Practitioner Family | DX: L21.8 Other seborrheic dermatitis (principal); D17.22 Benign lipomatous neoplasm of skin and subcutaneous tissue of left arm; L98.8 Other specified disorders of the skin and subcutaneous tissue; L72.0 Epidermal cyst; D48.5 Neoplasm of uncertain behavior of skin; D18.01 Hemangioma of skin and subcutaneous tissue; L90.5 Scar conditions and fibrosis of skin; L57.0 Actinic keratosis | CPT/HCPCS: 11102; 17000; 99204 ==